=== PATIENT | male | born 1985 | race Two or more races ===

== ENCOUNTER 2016-10-02 17:16 | Emergency (ER) | payer SELFPAY ==
[~2016-10-02] VITALS: Ht 175.3 cm; Wt 104.3 kg
[~2016-10-02 17:16] MED LIST: ALPRAZOLAM1 MG PO; ATIVAN0.5 MG ORAL; ATIVAN1 MG ORAL; BACITRACIN1 APPLIC TOPIC; BACITRACIN15 GM TOPIC; BACTRIM DS TAB1 EAC1 ORAL; BENADRYL A12.5 MG/5 ORAL; BENADRYL25 MG ORAL; BENTYL10 MG ORAL; BUSPAR10 MG ORAL; CIPROFLOXACIN500 M2 ORAL; CYCLOBENZAPRINE10 MG ORAL; FAMOTIDINE40 MG ORAL; GINKGO BILOBA120 M1 PO; IBUPROFEN600 MG ORAL; MAALOX MAXIMUM355 M1 PO; NKM; NORCO 5-325 TA1 EACH ORAL; OCUFLOX5 ML LEFT EYE; OMEPRAZOLE20 M2 ORAL; PEPCID20 MG ORAL; PEPCID40 MG PO; PHENERGAN25 M1 ORAL; RANITIDINE HCL150 MG ORAL; XANAX1 MG ORAL; ZANTAC150 MG ORAL; ZOFRAN ODT4 MG ORAL; ZOFRAN4 MG ORAL
[2016-10-02 17:33] VITALS: BP 129/88
--- NOTE | 2016-10-02 17:38 | Emergency Room Report ---
History of Present Illness General Chief Complaint: General Complaint Source: Patient Present Illness HPI Patient present with complaints of anxiety he states that he feels anxious Patient states that he was in the shower when he started to feel palpitation sensation He got dressed and walked outside And after he was not feeling better called 911 Denies any chest pain denies any back or flank pain denies any change in medications patient is requesting medicine to help with his anxiety Denies any diarrhea Denies any fevers or chills Allergies: Coded Allergies: ESOMEPRAZOLE (Verified Allergy, Severe, 06/07/14) IODINATED CONTRAST MEDIA - IV DYE (Verified Allergy, Intermediate, Rash, ) Patient History Past Medical History: see triage record Pertinent Family History: none Reviewed Nursing Documentation: PMH: Agreed, PSxH: Agreed Nursing Documentation-PMH Past Medical History: No History, Except For Hx Gastrointestinal Problems: Yes - Hiatal hernia in 2013 History Of Psychiatric Problem: Yes - Anxiety Review of Systems All Other Systems: negative except mentioned in HPI Physical Exam Vital Signs Date Time Temp Pulse Resp B/P Pulse Ox O2 Delivery O2 Flow Rate FiO2 10/02/16 17:23 97.0 104 20 125/89 100 Room Air Sp02 EP Interpretation: reviewed, normal General Appearance: well appearing, no apparent distress Head: normocephalic, atraumatic Eyes: bilateral eye EOMI, bilateral eye PERRL ENT: hearing grossly normal, normal pharynx, TMs + canals normal, uvula midline Neck: full range of motion, supple, no meningismus, no bony tend Respiratory: lungs clear, normal breath sounds, no rhonchi, no respiratory distress, no retraction, no accessory muscle use Cardiovascular #1: normal peripheral pulses, regular rate, rhythm, no edema, no gallop, no JVD, no murmur Gastrointestinal: normal bowel sounds, non tender, soft, no mass, no organomegaly, non-distended, no guarding, no hernia, no pulsatile mass, no rebound Genitourinary: no CVA tenderness Musculoskeletal: normal inspection Neurologic: oriented x3, responsive, air conditioning engineer III-XII nml as tested, motor strength/ tone normal, sensory intact Psychiatric: mood/affect normal Skin: normal color, no rash, warm/dry, palpation normal Lymphatic: normal inspection, no adenopathy Medical Decision Making Diagnostic Impression: Primary Impression: Palpitations ER Course Multiple differentials were considered Patient was placed on a usability strategist an EKG performed Patient is in sinus rhythm has a benign medical evaluation patient asking for Ativan in the emergency room He has been seen previously and does have blood work in the system from few months ago I did not feel that is required to be repeated And the patient stable for close outpatient followup Rhythm Strip Diag. Results EP Interpretation: yes Rate: 76 Rhythm: NSR, no PVC's, no ectopy Last Vital Signs Date Time Temp Pulse Resp B/P Pulse Ox O2 Delivery O2 Flow Rate FiO2 10/02/16 17:23 97.0 104 20 125/89 100 Room Air Status: improved Disposition: HOME, SELF-CARE Condition: Improved Additional Instructions: Patient is provided with the discharge instructions notified to follow up with primary doctor in the next 2-3 days otherwise return to the er with any worsening symptoms. MARK FLORES D.O. Oct 02, 2016 17:38
[2016-10-02] MEDS ORDERED: LORazepam 1mg tab ORAL ONE (17:45)
[2016-10-02 18:24] VITALS: BP 126/88
--- NOTE | 2016-10-10 14:57 | Cardiology Report ---
APPROVED REPORT EKG Measurement Heart [id number] Normal sinus rhythm Normal ECG
== END 2016-10-02 18:28 | disposition home or self-care (01) ==
LOC: EDBD 17:16 → EMR 17:49
DX: R00.2 Palpitations (principal); F41.9 Anxiety disorder, unspecified; Z91.041 Radiographic dye allergy status; Z88.8 Allergy status to other drugs, medicaments and biological substances
CPT/HCPCS: 93005; 99283

== ENCOUNTER 2016-10-22 22:45 | Emergency (ER) | payer SELFPAY ==
[~2016-10-22] VITALS: Ht 175.3 cm; Wt 104.3 kg
[2016-10-22] MEDS ORDERED: BACTRIM DS TAB1 EAC1 ORAL (23:06)
[2016-10-22] MEDS ORDERED: IBUPROFEN600 MG ORAL (23:06)
[2016-10-22] MEDS ORDERED: PEPCID20 MG ORAL (23:06)
[2016-10-22] MEDS ORDERED: Bactrim DS (160mg/800mg) tab ORAL ONE (23:15)
[2016-10-22 23:45] VITALS: BP 122/75
[2016-10-22 23:46] VITALS: BP 122/75
--- NOTE | 2016-10-23 00:46 | Emergency Room Report ---
History of Present Illness General Chief Complaint: Skin Rash/Abscess Present Illness HPI Patient is a 31-year-old male who presented after having increased skin rash to his back. Patient gradual onset of symptoms. Patient had several days of increased back pain as well as redness. The patient presented here staph infections to his back. Patient had recent fever. He had not been having any had dizziness. Is not currently taking any antibiotics Allergies: Coded Allergies: ESOMEPRAZOLE (Verified Allergy, Severe, 06/07/14) IODINATED CONTRAST MEDIA - ORAL AND (Verified Allergy, Intermediate, Rash , 02/04/13) PENICILLINS (Verified Allergy, Unknown, 10/22/16) Patient History Past Medical History: see triage record Reviewed Nursing Documentation: PMH: Agreed, PSxH: Agreed Nursing Documentation-PMH Hx Gastrointestinal Problems: Yes - Hiatal hernia in 2013 Review of Systems All Other Systems: negative except mentioned in HPI Physical Exam Vital Signs Date Time Temp Pulse Resp B/P Pulse Ox O2 Delivery O2 Flow Rate FiO2 10/22/16 22:48 98.1 76 18 127/76 100 Room Air General Appearance: well appearing, no apparent distress, alert, GCS 15 Head: normocephalic, atraumatic ENT: hearing grossly normal, normal voice Neck: full range of motion, supple Respiratory: no respiratory distress, speaking full sentences Gastrointestinal: normal inspection, soft Musculoskeletal: gait/station normal, no calf tenderness Neurologic: normal inspection, alert, oriented x3, normal gait Psychiatric: mood/affect normal Skin: other - multiple small pustules to back without fluctuance Medical Decision Making Diagnostic Impression: Primary Impression: Staphylococcal infection ER Course Patient present for skin rash. Differential diagnosis included was not limited to folliculitis, abscess, cellulitis among others. Patient's benign exam and does not appear to require any further imaging or laboratory testing at this time. Patient given oral Bactrim. He is given prescription for pain medication as well as antibiotics. Is advised to have the wound rechecked in 2- 3 days. The patient is advised to follow up with primary care doctor. Patient is advised to return if any worsening condition or if any changes in status that are concerning. Last Vital Signs Date Time Temp Pulse Resp B/P Pulse Ox O2 Delivery O2 Flow Rate FiO2 10/22/16 23:46 98.1 68 20 122/75 100 Room Air Status: improved Disposition: HOME, SELF-CARE Condition: Stable Scripts Famotidine (PEPCID) 20 Mg Tablet 20 MG ORAL DAILY, #30 TAB 0 Refills Prov: Stevie Marrero 10/22/16 Trimethoprim/Sulfamethoxazole 160/800* (BACTRIM DS TABLET*) 1 Each Tablet 1 TAB ORAL TWICE A DAY, #14 TAB Prov: Stevie Marrero 10/22/16 Ibuprofen* (MOTRIN*) 600 Mg Tablet 600 MG ORAL Q8H Y for For Pain, #30 TAB Prov: Stevie Marrero 10/22/16 Referrals: NOT CHOSEN IPA/,REFERRING (PCP) Patient Instructions: MRSA Infection, Adult Stevie Marrero Oct 23, 2016 00:46
== END 2016-10-22 23:46 | disposition home or self-care (01) ==
LOC: EMR 23:00
DX: R21 Rash and other nonspecific skin eruption (principal); B95.8 Unspecified staphylococcus as the cause of diseases classified elsewhere; Z88.8 Allergy status to other drugs, medicaments and biological substances; Z88.0 Allergy status to penicillin; Z91.041 Radiographic dye allergy status
CPT/HCPCS: 99284

== ENCOUNTER 2016-11-07 09:33 | Emergency (ER) | payer SELFPAY ==
[~2016-11-07] VITALS: Ht 175.3 cm; Wt 104.3 kg
[2016-11-07] MEDS ORDERED: NKM (09:51)
[2016-11-07 09:55] VITALS: BP 129/60
--- NOTE | 2016-11-07 11:28 | Emergency Room Report ---
History of Present Illness General Chief Complaint: Skin Rash/Abscess Source: Patient Present Illness HPI Patient states that he has a history of skin infections/acne on his back. He states that he was treated with a course of antibiotics previously he did have some improvement but states that the "bumps" are back. He denies fever or chills. He denies nausea or vomiting. He has no other complaints. Allergies: Coded Allergies: ESOMEPRAZOLE (Verified Allergy, Severe, 06/07/14) IODINATED CONTRAST MEDIA - ORAL AND (Verified Allergy, Intermediate, Rash , 02/04/13) PENICILLINS (Verified Allergy, Unknown, 10/22/16) Patient History Past Medical History: none Social History: Denies: alcohol use, drug use, smoking Reviewed Nursing Documentation: PMH: Agreed, PSxH: Agreed Nursing Documentation-PM Past Medical History: No History, Except For Hx Gastrointestinal Problems: Yes - hiatal hernia Review of Systems All Other Systems: negative except mentioned in HPI Physical Exam Vital Signs Date Time Temp Pulse Resp B/P Pulse Ox O2 Delivery O2 Flow Rate FiO2 11/07/16 09:43 97.3 72 18 129/60 99 Room Air Sp02 EP Interpretation: reviewed, normal General Appearance: no apparent distress, alert, GCS 15, non-toxic Head: normocephalic, atraumatic Eyes: bilateral eye PERRL, bilateral eye normal inspection ENT: hearing grossly normal, normal pharynx, no angioedema, normal voice Neck: full range of motion, supple/symm/no masses Respiratory: no respiratory distress, no retraction, no accessory muscle use, speaking full sentences Cardiovascular #1: no edema Rectal: deferred Musculoskeletal: back normal, gait/station normal, normal range of motion, non- tender Neurologic: alert, oriented x3, responsive, motor strength/tone normal, sensory intact, speech normal Psychiatric: judgement/insight normal, memory normal, mood/affect normal, no suicidal/homicidal ideation Skin: normal color, warm/dry, well hydrated, other - Scattered acne/nodules on upper back and near buttocks. Lymphatic: no adenopathy Medical Decision Making Diagnostic Impression: Primary Impression: Folliculitis Additional Impression: Acne ER Course This patient has physical exam findings consistent with acne. I will give the patient doxycycline. I also started the patient on Hibiclens wash, preventing sweating, changes of clothing and bedding. He was also instructed to followup with his primary care physician or papeterie table assembler. At this time there is no drainable abscess or cellulitis. There is no emergency medical condition identified. Last Vital Signs Date Time Temp Pulse Resp B/P Pulse Ox O2 Delivery O2 Flow Rate FiO2 11/07/16 09:55 97.4 72 16 129/60 99 Room Air Disposition: HOME, SELF-CARE Condition: Stable Referrals: NOT CHOSEN [facility]/,REFERRING (PCP) SHABBIR GUTIERREZ D.O. Nov 07, 2016 11:28
[2016-11-07] MEDS ORDERED: DOXYCYCLINE MO100 MG ORAL (11:30)
[2016-11-07] MEDS ORDERED: HIBICLENS118 ML TP (11:30)
[2016-11-07 12:10] VITALS: BP 125/68
[2016-11-07 12:11] VITALS: BP 125/68
== END 2016-11-07 12:13 | disposition home or self-care (01) ==
LOC: EMR 10:35
DX: L70.9 Acne, unspecified (principal); L73.9 Follicular disorder, unspecified; Z88.8 Allergy status to other drugs, medicaments and biological substances; Z88.0 Allergy status to penicillin; Z91.041 Radiographic dye allergy status
CPT/HCPCS: 99284

== ENCOUNTER 2016-12-22 00:19 | Emergency (ER) | payer SELFPAY ==
[~2016-12-22] VITALS: Ht 175.3 cm; Wt 104.3 kg
[~2016-12-22 00:19] MED LIST changes: +DOXYCYCLINE MO100 MG ORAL; +HIBICLENS118 ML TP
[2016-12-22] MEDS ORDERED: LAMISIL15 GM TOPIC (00:53)
--- NOTE | 2016-12-22 00:53 | Emergency Room Report ---
History of Present Illness General Chief Complaint: Pain Source: Patient, Medical Record Present Illness HPI Is a 31-year-old male presents with bilateral feet pain. He came in tonight because pain going up his leg. He had this problem for many years. Denies any fever chills denies any nausea vomiting. Never seen anybody for it. Allergies: Coded Allergies: ESOMEPRAZOLE (Verified Allergy, Severe, 06/07/14) IODINATED CONTRAST MEDIA - ORAL AND (Verified Allergy, Intermediate, Rash , 02/04/13) PENICILLINS (Verified Allergy, Unknown, 10/22/16) Patient History Past Medical History: see triage record, old chart reviewed, psych hx Past Surgical History: none Pertinent Family History: none Social History: Denies: smoking Immunizations: other Reviewed Nursing Documentation: PMH: Agreed, PSxH: Agreed Nursing Documentation-PMH Past Medical History: No History, Except For Hx Gastrointestinal Problems: Yes - hiatal hernia Review of Systems Eye: Denies: blurred vision, eye pain ENT: Denies: ear pain, nose congestion, throat swelling Respiratory: Denies: cough, shortness of breath Cardiovascular: Denies: chest pain, palpitations Gastrointestinal: Denies: abdominal pain, diarrhea, nausea, vomiting Musculoskeletal: Denies: back pain, joint pain Skin: Denies: rash Neurological: Denies: headache, numbness Endocrine: Denies: increased thirst, increased urine Hematologic/Lymphatic: Denies: easy bruising All Other Systems: negative except mentioned in HPI Physical Exam Vital Signs Date Time Temp Pulse Resp B/P Pulse Ox O2 Delivery O2 Flow Rate FiO2 12/22/16 00:22 97.5 81 14 128/74 98 Room Air vitals normal Sp02 EP Interpretation: reviewed, normal General Appearance: well appearing, no apparent distress, alert Head: normocephalic, atraumatic Eyes: bilateral eye EOMI, bilateral eye PERRL ENT: hearing grossly normal, normal pharynx Neck: full range of motion, supple, no meningismus Respiratory: chest non-tender, lungs clear, normal breath sounds Cardiovascular #1: regular rate, rhythm, no murmur Gastrointestinal: normal bowel sounds, non tender, no mass, no organomegaly, no bruit, non-distended Musculoskeletal: back normal, gait/station normal, normal range of motion, other - Both feet: His social evidence of skin peeling and maceration. Also yellowing and malodorous. Nails are thickened. He has significant fungal infection. Psychiatric: mood/affect normal Skin: warm/dry Medical Decision Making Diagnostic Impression: Primary Impression: Athlete's foot on left Additional Impression: Athlete's foot on right ER Course Patient presents with significant athletes feet. His shoes are old and dirty. We'll refer to nursing coordinator. Last Vital Signs Date Time Temp Pulse Resp B/P Pulse Ox O2 Delivery O2 Flow Rate FiO2 12/22/16 00:22 97.5 81 14 128/74 98 Room Air Status: improved Disposition: HOME, SELF-CARE Condition: Stable Scripts Fluconazole* (DIFLUCAN*) 100 Mg Tablet 100 MG ORAL DAILY, #7 TAB Prov: PREETI GALLARDO M.D. 12/22/16 Terbinafine (Lamisil At) 12 Gm Cream..g. 1 APPL TOPIC TID, #60 GM Prov: PREETI GALLARDO M.D. 12/22/16 Additional Instructions: Keep your feet clean and dry. Good new shoes. Followup with your DrCori in 2-3 days. Return if worse. PREETI GALLARDO M.D. Dec 22, 2016 00:53
[2016-12-22] MEDS ORDERED: DIFLUCAN100 MG ORAL (00:58)
[2016-12-22 01:04] VITALS: BP 128/74
== END 2016-12-22 01:05 | disposition home or self-care (01) ==
LOC: EMR 00:35
DX: B35.3 Tinea pedis (principal); Z88.0 Allergy status to penicillin; Z88.8 Allergy status to other drugs, medicaments and biological substances; Z91.041 Radiographic dye allergy status
CPT/HCPCS: 99284

== ENCOUNTER 2017-01-01 20:53 | Emergency (ER) | payer SELFPAY ==
[~2017-01-01] VITALS: Ht 175.3 cm; Wt 104.3 kg
[~2017-01-01 20:53] MED LIST changes: +DIFLUCAN100 MG ORAL; +LAMISIL15 GM TOPIC
[2017-01-01] MEDS ORDERED: Lidocaine 1% 10mg/ml/Epi 0.005mg/ml 30ml vial INJ ONE (21:15)
[2017-01-01] MEDS ORDERED: Bactrim DS (160mg/800mg) tab ORAL ONE (21:15)
[2017-01-01] MEDS ORDERED: TdaP Vaccine 0.5ml Syr IM ONE (21:15)
--- NOTE | 2017-01-01 21:36 | Emergency Room Report ---
History of Present Illness General Chief Complaint: Skin Rash/Abscess Source: Patient Present Illness HPI The patient presents with redness and pain and swelling in the lower part of his abdomen. He's had this for several days. He's been using Vicks VapoRub on it. The pain is 7/10 at this time. Burning and constant it radiates down into his groin. He denies any fevers or chills. The patient has had several abscesses before that we've had to I and D. He's not sure when his last tetanus shot was. He's taken Tylenol and this has not helped pain. He denies any cough, upper respiratory infection symptoms, nausea, vomiting, diarrhea, dysuria. Problems with anxiety in the past. Allergies: Coded Allergies: ESOMEPRAZOLE (Verified Allergy, Severe, 06/07/14) IODINATED CONTRAST MEDIA - ORAL AND (Verified Allergy, Intermediate, Rash , 01/01/17) PENICILLINS (Verified Allergy, Unknown, 01/01/17) Patient History Past Medical History: see triage record Social History: Reports: smoking Social History Narrative works in restaurant Reviewed Nursing Documentation: PMH: Agreed, PSxH: Agreed Nursing Documentation-PMH Past Medical History: No History, Except For Hx Gastrointestinal Problems: Yes - hiatal hernia Review of Systems All Other Systems: negative except mentioned in HPI Physical Exam Vital Signs Date Time Temp Pulse Resp B/P Pulse Ox O2 Delivery O2 Flow Rate FiO2 01/01/17 20:59 98.2 90 16 146/85 97 Room Air Sp02 EP Interpretation: reviewed, normal General Appearance: well appearing, no apparent distress Head: normocephalic, atraumatic Eyes: bilateral eye PERRL, bilateral eye normal inspection ENT: hearing grossly normal, normal voice Neck: full range of motion, supple Respiratory: no respiratory distress, speaking full sentences Gastrointestinal: normal bowel sounds, soft, non-distended, no guarding, other - tenderness with skin inflammation Genitourinary: normal inspection, penis normal, scrotum normal Musculoskeletal: back normal, digits/nails normal, gait/station normal Neurologic: alert, normal gait, grossly normal Psychiatric: mood/affect normal Skin: other - erythema infraumbilical area with central area of fluctuance Procedures Incision and Drainage Incision and Drainage : Consent: Verbal Blade Size: 11 I & D Procedure: betadine prep, sterile drapes applied, sterile dressing applied, gauze wick placed Wound Location: other - abdomen Wound's Depth, Shape: superficial Wound Explored: contaminated Irrigated w/ Saline (ccs): 10 Anesthesia: Lidocaine w/ Epi Patient Tolerated: Well Complications: None Medical Decision Making Diagnostic Impression: Primary Impression: Abscess ER Course Patient presents with erythema and swelling on his lower abdomen. Differential includes cellulitis, abscess amongst others. He has no somatic complaints. This needs to be incised and drained. Also tetanus needs to be given. See procedure note. The patient tolerated the I and D well. He is discharged with antibiotics and analgesics. He'll return in 2 days to have the drain removed. Patient is stable for outpatient observation and treatment. Last Vital Signs Date Time Temp Pulse Resp B/P Pulse Ox O2 Delivery O2 Flow Rate FiO2 01/01/17 21:45 98.2 16 146/85 97 Room Air 01/01/17 20:59 90 Status: improved Disposition: HOME, SELF-CARE Condition: Improved Scripts Tramadol Hcl* (ULTRAM*) 50 Mg Tablet 50 MG ORAL Q6H Y for For Pain, #10 TAB 0 Refills Prov: Luis F Galvin M.D. 01/01/17 Ibuprofen* (MOTRIN*) 600 Mg Tablet 600 MG ORAL Q6H Y for For Pain, #16 TAB Prov: Luis F Galvin M.D. 01/01/17 Bacitracin (Bacitracin) 28.4 Gm Oint...g. 1 APPLIC TOPIC BID, #14 GM Prov: Luis F Galvin M.D. 01/01/17 Trimethoprim/Sulfamethoxazole 160/800* (BACTRIM DS TABLET*) 1 Each Tablet 1 TAB ORAL Q12H, #14 TAB 0 Refills Prov: Luis F Galvin M.D. 01/01/17 Luis F Galvin M.D. January 01, 2017 21:36
[2017-01-01] MEDS ORDERED: TRAMADOL HCL50 MG ORAL (21:39)
[2017-01-01] MEDS ORDERED: BACITRACIN15 GM TOPIC (21:39)
[2017-01-01] MEDS ORDERED: IBUPROFEN600 MG ORAL (21:39)
[2017-01-01] MEDS ORDERED: BACTRIM DS TAB1 EAC1 ORAL (21:39)
[2017-01-01 21:45] VITALS: BP 146/85
== END 2017-01-01 21:45 | disposition home or self-care (01) ==
LOC: EMR 21:37
DX: L02.211 Cutaneous abscess of abdominal wall (principal); Z88.0 Allergy status to penicillin; Z88.8 Allergy status to other drugs, medicaments and biological substances; Z91.041 Radiographic dye allergy status; F17.200 Nicotine dependence, unspecified, uncomplicated; Z23 Encounter for immunization
CPT/HCPCS: 10060; 90471; 90715; 96372; 96374

== ENCOUNTER 2017-01-03 21:57 | Emergency (ER) | payer SELFPAY ==
[~2017-01-03] VITALS: Ht 175.3 cm; Wt 104.3 kg
[~2017-01-03 21:57] MED LIST changes: +TRAMADOL HCL50 MG ORAL
[2017-01-03] MEDS ORDERED: KEFLEX500 MG ORAL (22:55)
[2017-01-03] MEDS ORDERED: ACETAMINOPHEN-1 EAC1 ORAL (22:55)
--- NOTE | 2017-01-03 23:03 | Emergency Room Report ---
History of Present Illness General Chief Complaint: Skin Rash/Abscess Source: Patient Present Illness HPI 31YOM Walk-in for wound check after I&D of abscess to front abdomen 2 days prior. Compliant with Bactrim. Taking Tramadol as needed for pain, but states not very effective. Denies fever/chills. States drain fell out when he changed dressing yesterday. Denies nausea/vomiting, stomach pain, diarrhea. States area of redness has remained the same. Allergies: Coded Allergies: ESOMEPRAZOLE (Verified Allergy, Severe, 01/03/17) IODINATED CONTRAST MEDIA - ORAL AND (Verified Allergy, Intermediate, Rash , 01/03/17) PENICILLINS (Verified Allergy, Unknown, 01/03/17) Patient History Past Surgical History: none Pertinent Family History: none Social History: Denies: alcohol use, drug use, smoking Immunizations: UTD Reviewed Nursing Documentation: PMH: Agreed, PSxH: Agreed Nursing Documentation-PMH Past Medical History: No History, Except For Hx Gastrointestinal Problems: Yes - hiatal hernia Review of Systems All Other Systems: negative except mentioned in HPI Physical Exam Vital Signs Date Time Temp Pulse Resp B/P Pulse Ox O2 Delivery O2 Flow Rate FiO2 01/03/17 22:13 98.1 91 16 134/93 98 Room Air Sp02 EP Interpretation: reviewed, normal General Appearance: normal inspection, well appearing, no apparent distress, alert, GCS 15, non-toxic Head: normocephalic, atraumatic Eyes: bilateral eye EOMI, bilateral eye PERRL ENT: normal ENT inspection, hearing grossly normal, normal voice Neck: normal inspection, full range of motion, supple, no bony tend Respiratory: normal inspection, lungs clear, normal breath sounds, no respiratory distress, no retraction, no wheezing Cardiovascular #1: regular rate, rhythm, no edema Gastrointestinal: normal inspection, normal bowel sounds, non tender, soft, no guarding, no hernia Genitourinary: no CVA tenderness Musculoskeletal: normal inspection, back normal, normal range of motion, Maribeth' s Sign negative Neurologic: normal inspection, alert, oriented x3, responsive, sheet heater helper III-XII nml as tested, motor strength/tone normal, speech normal Psychiatric: normal inspection, judgement/insight normal, mood/affect normal Skin: normal inspection, other - area of frontal abdomen with large section of streaky erythema. I&D site visualized, no drain seen. No pus expressed from wound. Medical Decision Making Diagnostic Impression: Primary Impression: Abscess Additional Impression: Cellulitis ER Course Resolved abscess but continued cellulitis VSS. Afebrile. No systemic signs or symptoms Will add Rx Keflex to bactrim Rx T#3 in addition for pain DC home Last Vital Signs Date Time Temp Pulse Resp B/P Pulse Ox O2 Delivery O2 Flow Rate FiO2 01/03/17 22:13 98.1 91 16 134/93 98 Room Air Status: improved Disposition: HOME, SELF-CARE Condition: Improved Scripts Cephalexin* (KEFLEX*) 500 Mg Capsule 500 MG ORAL Q6H for 7 Days, #28 CAP 0 Refills Prov: CAHIM MAGALLANES M.D. 01/03/17 Acetaminophen With Codeine (T#3) (TYLENOL #3 TAB*) Y Tab 1 TAB ORAL Q8H Y for For Pain, #20 TAB Prov: CHAIM MAGALLANES M.D. 01/03/17 Patient Instructions: Abscess Additional Instructions: - Take ALL the Bactrim as prescribed until finished - Also take Keflex for 1 week until finished - Take Tramadol as needed for pain - For severe pain you can take Tylenol with codeine CHAIM MAGALLANES M.D. January 03, 2017 23:03
[2017-01-03 23:20] VITALS: BP 137/91
[2017-01-03 23:25] VITALS: BP 137/91
== END 2017-01-03 23:25 | disposition home or self-care (01) ==
LOC: EMR 22:45
DX: L02.211 Cutaneous abscess of abdominal wall (principal); L03.311 Cellulitis of abdominal wall; Z88.0 Allergy status to penicillin; Z88.8 Allergy status to other drugs, medicaments and biological substances; Z91.041 Radiographic dye allergy status
CPT/HCPCS: 99284

== ENCOUNTER 2017-02-10 17:47 | Emergency (ER) | payer SELFPAY ==
[~2017-02-10] VITALS: Ht 175.3 cm; Wt 104.3 kg
[~2017-02-10 17:47] MED LIST changes: +ACETAMINOPHEN-1 EAC1 ORAL; +KEFLEX500 MG ORAL
[2017-02-10] MEDS ORDERED: CLARITIN-D 241 EACH PO (18:22)
[2017-02-10] MEDS ORDERED: PROMETHAZI6.25 MG/1 ORAL (18:22)
[2017-02-10] MEDS ORDERED: PREDNISONE20 MG ORAL (18:22)
[2017-02-10 18:26] VITALS: BP 130/92
--- NOTE | 2017-02-10 19:49 | Emergency Room Report ---
History of Present Illness General Chief Complaint: Flu Like Symptoms Present Illness HPI The patient is a 31-year-old male who denies medical history presenting for nasal congestion, productive cough, sore throat, and chest congestion for the past 2 weeks. He denies any sick contacts or recent travel. He denies fever or chills. He denies having any allergies in the past. He denies any other symptoms including N, V, SOB, CP, hemoptyisis, dizziness, JOAQUIN, rash Allergies: Coded Allergies: ESOMEPRAZOLE (Verified Allergy, Severe, 01/03/17) IODINATED CONTRAST MEDIA - ORAL AND (Verified Allergy, Intermediate, Rash , 01/03/17) PENICILLINS (Verified Allergy, Unknown, 01/03/17) Patient History Past Medical History: see triage record Pertinent Family History: none Reviewed Nursing Documentation: PMH: Agreed, PSxH: Agreed Nursing Documentation-PMH Hx Gastrointestinal Problems: Yes - hiatal hernia Review of Systems All Other Systems: negative except mentioned in HPI Physical Exam Vital Signs Date Time Temp Pulse Resp B/P Pulse Ox O2 Delivery O2 Flow Rate FiO2 02/10/17 17:56 97.9 82 20 130/92 99 Room Air Sp02 EP Interpretation: reviewed, normal General Appearance: no apparent distress, alert, GCS 15, non-toxic Head: normocephalic, atraumatic Eyes: bilateral eye PERRL, bilateral eye normal inspection ENT: hearing grossly normal, normal pharynx, no angioedema, normal voice, uvula midline, nasal congestion Neck: full range of motion, supple/symm/no masses Respiratory: normal inspection, lungs clear, normal breath sounds, no rhonchi, no respiratory distress, no accessory muscle use, no wheezing Cardiovascular #1: regular rate, rhythm, no edema Musculoskeletal: back normal, gait/station normal, normal range of motion, non- tender Neurologic: alert, oriented x3, responsive, motor strength/tone normal, sensory intact, normal gait, speech normal Psychiatric: judgement/insight normal, memory normal, mood/affect normal, no suicidal/homicidal ideation Skin: normal color, no rash, warm/dry, well hydrated Lymphatic: no adenopathy Medical Decision Making PA Attestation Dr. Marrero is my supervising physician. Patient management was discussed with my supervising physician Diagnostic Impression: Primary Impression: Seasonal allergies Qualified Codes: J30.2 - Other seasonal allergic rhinitis ER Course The patient is a 31-year-old male presenting for nasal congestion, productive cough, sore throat, and chest congestion Differential diagnosis include but not limited to pharyngitis, sinusitis, AOM, bronchitis, PNA, rhinitis, among others PE: No apparent distress. A&Ox4 PERRL. EOMI. Normal mentation. RRR. No MRG Lungs CTA bilat + nasal congestion No lymphadenopathy Skin is warm and dry, no rashes. The patient to be treated for allergies. ER precautions given and he will follow up with PMD Last Vital Signs Date Time Temp Pulse Resp B/P Pulse Ox O2 Delivery O2 Flow Rate FiO2 02/10/17 18:26 97.9 20 130/92 99 Room Air 02/10/17 18:06 82 Status: improved Disposition: HOME, SELF-CARE Condition: Improved Scripts Promethazine Hcl (PROMETHAZINE HCL*) 6.25 Mg/5 Ml Syrup 5 ML ORAL Q6H, #120 ML 0 Refills Prov: JOSE M DOMINGO P.A. 02/10/17 Prednisone* (PREDNISONE*) 20 Mg Tablet 40 MG ORAL DAILY, #10 TAB Prov: TERZIANJOSE M P.A. 02/10/17 Loratadine/Pseudoephedrine (CLARITIN-D 24 HOUR TABLET) 1 Each Tab.er.24h 1 TAB PO DAILY, #30 TAB Prov: TERZIANJOSE M P.A. 02/10/17 Patient Instructions: Cough, Adult, Allergies Additional Instructions: I discussed my findings with the patient. All questions and concerns have been answered. Treatment and medication compliance have been addressed. I advised the patient that they need to follow up with PMD in 3-5 days. Return to ED if symptoms worsen, new symptoms arise, or if needed for any reason. Patient verbalized understanding of discharge instructions. JOSE M DOMINGO Feb 10, 2017 19:49
== END 2017-02-10 18:25 | disposition home or self-care (01) ==
LOC: EMR 18:10
DX: J30.2 Other seasonal allergic rhinitis (principal); Z88.0 Allergy status to penicillin; Z88.8 Allergy status to other drugs, medicaments and biological substances; Z91.041 Radiographic dye allergy status; K44.9 Diaphragmatic hernia without obstruction or gangrene
CPT/HCPCS: 99284

== ENCOUNTER 2017-02-24 22:21 | Emergency (ER) | payer SELFPAY ==
[~2017-02-24] VITALS: Ht 185.4 cm; Wt 104.3 kg
[~2017-02-24 22:21] MED LIST changes: +CLARITIN-D 241 EACH PO; +PREDNISONE20 MG ORAL; +PROMETHAZI6.25 MG/1 ORAL
[2017-02-24 22:30] VITALS: BP 131/81
[2017-02-24] MEDS ORDERED: BUSPAR10 MG ORAL (23:16)
--- NOTE | 2017-02-24 23:16 | Emergency Room Report ---
History of Present Illness General Chief Complaint: Chest Pain Source: Patient Present Illness HPI Is a 31-year-old male with a history of anxiety. He presents with chief complaint of numbness to his body and head. Also with palpitation and chest pain. [place] nauseous. Collapse or vomiting. Onset prior to arrival. [place] better now. Denies any fever chills denies any diarrhea. No abdominal pain. Similar symptom in the past. Allergies: Coded Allergies: ESOMEPRAZOLE (Verified Allergy, Severe, 01/03/17) IODINATED CONTRAST MEDIA - ORAL AND (Verified Allergy, Intermediate, Rash , 01/03/17) PENICILLINS (Verified Allergy, Unknown, 01/03/17) Patient History Past Medical History: see triage record, old chart reviewed, psych hx Past Surgical History: none Pertinent Family History: none Social History: Denies: drug use Immunizations: other Reviewed Nursing Documentation: PMH: Agreed, PSxH: Agreed Nursing Documentation-PM Past Medical History: No History, Except For Hx Gastrointestinal Problems: Yes - hiatal hernia Review of Systems Eye: Denies: blurred vision, eye pain ENT: Denies: ear pain, nose congestion, throat swelling Respiratory: Denies: cough, shortness of breath Cardiovascular: Reports: chest pain, palpitations Gastrointestinal: Reports: nausea, vomiting, Denies: abdominal pain, diarrhea Musculoskeletal: Denies: back pain, joint pain Skin: Denies: rash Neurological: Denies: headache, numbness Endocrine: Denies: increased thirst, increased urine Hematologic/Lymphatic: Denies: easy bruising All Other Systems: negative except mentioned in HPI Physical Exam Vital Signs Date Time Temp Pulse Resp B/P Pulse Ox O2 Delivery O2 Flow Rate FiO2 02/24/17 22:25 97.9 68 12 131/81 100 Room Air vitals normal Sp02 EP Interpretation: reviewed, normal General Appearance: well appearing, no apparent distress, alert Head: normocephalic, atraumatic Eyes: bilateral eye EOMI, bilateral eye PERRL ENT: hearing grossly normal, normal pharynx Neck: full range of motion, supple, no meningismus Respiratory: chest non-tender, lungs clear, normal breath sounds Cardiovascular #1: regular rate, rhythm, no murmur Gastrointestinal: normal bowel sounds, non tender, no mass, no organomegaly, no bruit, non-distended Musculoskeletal: back normal, gait/station normal, normal range of motion Psychiatric: mood/affect normal Skin: warm/dry Medical Decision Making Diagnostic Impression: Primary Impression: Anxiety Additional Impression: Chest pain Qualified Codes: R07.9 - Chest pain, unspecified ER Course Patient with symptoms consistent with anxiety/panic attack. Chest pain is atypical and noncardiac. We'll discharge home. He sleeping comfortably now. Last Vital Signs Date Time Temp Pulse Resp B/P Pulse Ox O2 Delivery O2 Flow Rate FiO2 02/24/17 22:30 70 13 Room Air 02/24/17 22:30 97.9 131/81 98 Status: improved Disposition: HOME, SELF-CARE Condition: Stable Scripts Buspirone Hcl* (BUSPAR*) 10 Mg Tablet 10 MG ORAL THREE TIMES A DAY, #15 TAB 0 Refills Prov: PREETI GALLARDO M.D. 02/24/17 Referrals: NOT CHOSEN [facility]/,REFERRING (PCP) Additional Instructions: Followup with your Dr. in 7 days. Return if symptom worsen. PREETI GALLARDO M.D. Feb 24, 2017 23:16
[2017-02-24 23:25] VITALS: BP 106/57
== END 2017-02-24 23:25 | disposition home or self-care (01) ==
LOC: EMR 22:36
DX: F41.9 Anxiety disorder, unspecified (principal); R07.89 Other chest pain; R11.2 Nausea with vomiting, unspecified; R00.2 Palpitations; K44.9 Diaphragmatic hernia without obstruction or gangrene; Z88.8 Allergy status to other drugs, medicaments and biological substances; Z88.0 Allergy status to penicillin; Z91.041 Radiographic dye allergy status
CPT/HCPCS: 99283

== ENCOUNTER 2017-03-14 22:09 | Emergency (ER) | payer SELFPAY ==
[~2017-03-14] VITALS: Ht 185.4 cm; Wt 104.3 kg
[2017-03-14 22:20] VITALS: BP 137/84
--- NOTE | 2017-03-14 22:29 | Emergency Room Report ---
History of Present Illness General Chief Complaint: Sore Throat Source: Patient Present Illness HPI Is a 31-year-old male with a history anxiety. He presents to complaint of sore throat. He said he was eating a taco and felt a scratch in his throat. Denies any fever chills denies any nausea vomiting. Nothing made it better. Swollen made it worse. No other complaint. Allergies: Coded Allergies: ESOMEPRAZOLE (Verified Allergy, Severe, 01/03/17) IODINATED CONTRAST MEDIA - ORAL AND (Verified Allergy, Intermediate, Rash , 01/03/17) PENICILLINS (Verified Allergy, Unknown, 01/03/17) Patient History Past Medical History: see triage record, old chart reviewed Past Surgical History: other Pertinent Family History: none Social History: Denies: smoking Immunizations: other Reviewed Nursing Documentation: PMH: Agreed, PSxH: Agreed Nursing Documentation-PMH Past Medical History: No History, Except For Hx Gastrointestinal Problems: Yes - hiatal hernia Review of Systems Eye: Denies: blurred vision, eye pain ENT: Reports: throat pain, Denies: ear pain, nose congestion, throat swelling Respiratory: Denies: cough, shortness of breath Cardiovascular: Denies: chest pain, palpitations Gastrointestinal: Denies: abdominal pain, diarrhea, nausea, vomiting Musculoskeletal: Denies: back pain, joint pain Skin: Denies: rash Neurological: Denies: headache, numbness Endocrine: Denies: increased thirst, increased urine Hematologic/Lymphatic: Denies: easy bruising All Other Systems: negative except mentioned in HPI Physical Exam Vital Signs Date Time Temp Pulse Resp B/P Pulse Ox O2 Delivery O2 Flow Rate FiO2 03/14/17 22:14 98.1 85 16 137/84 99 Room Air vitals normal Sp02 EP Interpretation: reviewed, normal General Appearance: well appearing, no apparent distress, alert Head: normocephalic, atraumatic Eyes: bilateral eye EOMI, bilateral eye PERRL ENT: hearing grossly normal, normal pharynx Neck: full range of motion, supple, no meningismus Respiratory: chest non-tender, lungs clear, normal breath sounds Cardiovascular #1: regular rate, rhythm, no murmur Gastrointestinal: normal bowel sounds, non tender, no mass, no organomegaly, no bruit, non-distended Musculoskeletal: back normal, gait/station normal, normal range of motion Psychiatric: mood/affect normal Skin: warm/dry Medical Decision Making Diagnostic Impression: Primary Impression: Sore throat ER Course Patient presents with sore throat. He able to drink without a problem here. Notice any foreign body. We'll discharge home with reassurance. No need for x- rays. No evidence of any obstruction. Last Vital Signs Date Time Temp Pulse Resp B/P Pulse Ox O2 Delivery O2 Flow Rate FiO2 03/14/17 22:14 98.1 85 16 137/84 99 Room Air Status: improved Disposition: HOME, SELF-CARE Condition: Stable Patient Instructions: Sore Throat Additional Instructions: Followup with your Dr. in 7 days. Return if symptom worsen. PREETI GALLARDO M.D. Mar 14, 2017 22:29
[2017-03-14 22:30] VITALS: BP 137/84
== END 2017-03-14 22:30 | disposition home or self-care (01) ==
LOC: EMR 22:30
DX: J02.9 Acute pharyngitis, unspecified (principal); K44.9 Diaphragmatic hernia without obstruction or gangrene; Z88.0 Allergy status to penicillin; Z88.8 Allergy status to other drugs, medicaments and biological substances; Z91.041 Radiographic dye allergy status
CPT/HCPCS: 99282

== ENCOUNTER 2017-06-03 23:47 | Emergency (ER) | payer SELFPAY ==
[~2017-06-03] VITALS: Ht 185.4 cm; Wt 104.3 kg
[2017-06-04 00:03] VITALS: BP 128/72
--- NOTE | 2017-06-04 00:11 | Emergency Room Report ---
History of Present Illness General Chief Complaint: Sore Throat Source: Patient Present Illness HPI 32-year-old male in no significant past medical history presenting with sore throat, cough for one week. Patient states he has a sore throat, worse with eating, but however he has been able to eat and drink normally. Also complaining of dry cough. States that his tongue is very dry. No fever or chills no abdominal pain Allergies: Coded Allergies: ESOMEPRAZOLE (Verified Allergy, Severe, 01/03/17) IODINATED CONTRAST MEDIA - ORAL AND (Verified Allergy, Intermediate, Rash , 01/03/17) PENICILLINS (Verified Allergy, Unknown, 01/03/17) Patient History Past Medical History: see triage record Past Surgical History: none Pertinent Family History: none Reviewed Nursing Documentation: PMH: Agreed, PSxH: Agreed Nursing Documentation-PMH Hx Gastrointestinal Problems: Yes - hiatal hernia Review of Systems All Other Systems: negative except mentioned in HPI Physical Exam Vital Signs Date Time Temp Pulse Resp B/P (MAP) Pulse Ox O2 Delivery O2 Flow Rate FiO2 06/03/17 23:49 97.9 66 18 136/70 98 06/04/17 00:03 Room Air Sp02 EP Interpretation: reviewed, normal General Appearance: normal inspection, well appearing, no apparent distress, alert, GCS 15, non-toxic, other - no respiratory distress, speaking complete sentences Head: normocephalic, atraumatic Eyes: bilateral eye normal inspection, bilateral eye PERRL, bilateral eye EOMI ENT: normal voice, moist mucus membranes, other - Tonsillar erythema bilaterally, no enlargement, no exudates, no uvula enlargement, uvula is midline , no signs of BAG MAKING MACHINE TENDER Neck: normal inspection, full range of motion, supple, other - No tenderness, no neck swelling, can extend neck without any issue Respiratory: normal inspection, lungs clear, normal breath sounds, no respiratory distress, no retraction, no wheezing, speaking full sentences, chest symmetrical Cardiovascular #1: normal inspection, regular rate, rhythm, no edema, normal capillary refill Cardiovascular #2: 2+ radial (R), 2+ radial (L) Gastrointestinal: normal inspection, non tender, soft, non-distended, no guarding Genitourinary: no CVA tenderness Musculoskeletal: normal inspection, back normal, normal range of motion, non- tender Neurologic: normal inspection, alert, oriented x3, responsive, motor strength/ tone normal, sensory intact, normal gait, speech normal Psychiatric: normal inspection, judgement/insight normal, memory normal Skin: normal inspection, normal color, no rash, warm/dry, well hydrated, normal turgor Medical Decision Making Diagnostic Impression: Primary Impression: Sore throat ER Course 32-year-old male with sore throat and cough DDX: viral vs. infectious mononucleosis vs. bacterial pharyngitis vs. allergies versus viral URI versus pneumonia Other serious causes such as BAG MAKING MACHINE TENDER / RPA / deep space neck infection history/physical most consistent with viral pharyngitis Plan: Motrin, supportive care. Abx not indicated at this time ER course: Patient remains stable in ED. Pt states improvement of pain with motrin. Disposition: Patient will be discharged to home. Patient will follow up with primary care doctor within 5 days. Strict return precautions discussed with patient such as worsening throat pain/swelling, dysphagia, high fever or chills, shortness of breath, abdominal pain, which may indicate severe illness. Patient verbalized understanding and agreed with plan. Please note that this Emergency Department Report was dictated using [employer] design engineer technology software, occasionally this can lead to erroneous entry secondary to interpretation by the dictation equipment. Chest X-ray CXR: Ordered: Yes 1 view Indication: Chest pain EP interpretation: Yes Interpretation: No consolidation, no effusion, no PTX, no acute cardiopulmonary disease Impression: No acute disease Electronically signed by Skylar Fraire MD Last Vital Signs Date Time Temp Pulse Resp B/P (MAP) Pulse Ox O2 Delivery O2 Flow Rate FiO2 06/04/17 00:03 98.1 88 18 128/72 100 Room Air Disposition: HOME, SELF-CARE Condition: Improved Scripts Ibuprofen* (MOTRIN*) 600 Mg Tablet 600 MG ORAL Q8H Y for For Pain, #30 TAB 0 Refills Prov: Skylar Fraire M.D. 06/04/17 Referrals: NOT CHOSEN [facility]/,REFERRING (PCP) Patient Instructions: Sore Throat Skylar Fraire M.D. Jun 04, 2017 00:11
[2017-06-04] MEDS ORDERED: IBUPROFEN600 MG ORAL (00:14)
[2017-06-04 01:15] VITALS: BP 128/72
--- NOTE | 2017-06-04 10:06 | Diagnostic Imaging Report ---
Indication: Chest pain Comparison: 04/09/16 A single view chest radiograph was obtained. Findings: Cardiomediastinal appearance is within normal limits for age. Pulmonary vascularity is appropriate. The diaphragmatic contour is smooth and costophrenic angles are sharp. No pleural effusions are identified. The bones are unremarkable. Impression: No acute findings
== END 2017-06-04 01:15 | disposition home or self-care (01) ==
LOC: EMR 06-04 00:03
DX: J02.9 Acute pharyngitis, unspecified (principal); R07.9 Chest pain, unspecified; K44.9 Diaphragmatic hernia without obstruction or gangrene; Z88.0 Allergy status to penicillin; Z91.041 Radiographic dye allergy status; Z88.8 Allergy status to other drugs, medicaments and biological substances
CPT/HCPCS: 71010; 99283

== ENCOUNTER 2017-06-11 19:47 | Emergency (ER) | payer SELFPAY ==
[~2017-06-11] VITALS: Ht 175.3 cm; Wt 104.3 kg
[2017-06-11] MEDS ORDERED: NKM (20:10)
--- NOTE | 2017-06-11 21:10 | Emergency Room Report ---
History of Present Illness General Chief Complaint: Nausea, Vomiting, and Diarrhea Source: Patient Present Illness HPI Patient reports that about 10 minutes prior to arrival he had eaten chicken at a restaurant Soon after eating that he began vomiting Experienced epigastric discomfort Mild headache as well Patient reports that he felt some scratchy sensation in his throat At this time has done a little bit better denies any back or flank pain Denies any lower abdominal pain denies any diarrhea Allergies: Coded Allergies: ESOMEPRAZOLE (Verified Allergy, Severe, 06/11/17) IODINATED CONTRAST- ORAL AND IV DYE (Verified Allergy, Intermediate, Rash , 06/11/17) PENICILLINS (Verified Allergy, Unknown, 06/11/17) Patient History Past Medical History: see triage record Pertinent Family History: none Reviewed Nursing Documentation: PMH: Agreed, PSxH: Agreed Nursing Documentation-PMH Hx Gastrointestinal Problems: Yes - hiatal hernia Review of Systems All Other Systems: negative except mentioned in HPI Physical Exam Vital Signs Date Time Temp Pulse Resp B/P (MAP) Pulse Ox O2 Delivery O2 Flow Rate FiO2 06/11/17 20:05 97.9 87 16 144/98 99 Room Air Sp02 EP Interpretation: reviewed, normal General Appearance: well appearing, no apparent distress Head: normocephalic, atraumatic Eyes: bilateral eye PERRL, bilateral eye EOMI ENT: hearing grossly normal, normal pharynx, TMs + canals normal, uvula midline Neck: full range of motion, supple, no meningismus, no bony tend Respiratory: lungs clear, normal breath sounds, no rhonchi, no respiratory distress, no retraction, no accessory muscle use Cardiovascular #1: regular rate, rhythm Gastrointestinal: non tender, soft Musculoskeletal: normal inspection Neurologic: alert, oriented x3, responsive Skin: no rash, warm/dry Lymphatic: no adenopathy Medical Decision Making Diagnostic Impression: Primary Impression: Vomiting Additional Impression: Abdominal pain ER Course With the history exam and presentation, multiple differentials considered, including but not limited to appendicitis, gastritis, cholecystitis, diverticulitis Patient otherwise has a fairly benign abdominal exam at this time my consideration for appendicitis is low Patient appears to have signs and symptoms in line with likely viral gastroenteritis Given the vomiting Patient provided with early appendicitis instructions and will return with any change in symptom Patient was provided with antiemetics and stable for close outpatient followup Last Vital Signs Date Time Temp Pulse Resp B/P (MAP) Pulse Ox O2 Delivery O2 Flow Rate FiO2 06/11/17 20:05 97.9 87 16 144/98 99 Room Air Status: improved Disposition: HOME, SELF-CARE Condition: Improved Scripts Ondansetron Odt* (ZOFRAN ODT*) 4 Mg Tab.rapdis 4 MG ORAL Q6H Y for Nausea & Vomiting, #20 TAB 0 Refills Prov: MARK FLORES D.O. 06/11/17 Additional Instructions: Patient is provided with the discharge instructions notified to follow up with primary doctor in the next 2-3 days otherwise return to the er with any worsening symptoms. Please note that this report is being documented using [employer] technology. This can lead to erroneous entry secondary to incorrect interpretation by the dictating instrument. MARK FLORES D.O. Jun 11, 2017 21:10
[2017-06-11 21:18] VITALS: BP 144/98
[2017-06-11] MEDS ORDERED: ZOFRAN ODT4 MG ORAL (21:26)
[2017-06-11 21:49] VITALS: BP 138/80
== END 2017-06-11 21:50 | disposition home or self-care (01) ==
LOC: EMR 20:40
DX: R11.2 Nausea with vomiting, unspecified (principal); R10.9 Unspecified abdominal pain; Z88.0 Allergy status to penicillin; Z88.8 Allergy status to other drugs, medicaments and biological substances; Z91.041 Radiographic dye allergy status
CPT/HCPCS: 99283

== ENCOUNTER 2017-08-06 19:51 | Emergency (ER) | payer SELFPAY ==
[~2017-08-06] VITALS: Ht 175.3 cm; Wt 104.3 kg
[2017-08-06 20:37] LABS: APPEARANCE,URINE CLEAR; KETONES,URINE NEGATIVE (NEGATIVE); LEUKOCYTE ESTERASE ,URINE NEGATIVE (NEGATIVE); NITRITE,URINE NEGATIVE (NEGATIVE); PH,URINE 6 (4.5-8.0); PROTEIN,URINE NEGATIVE (NEGATIVE); UROBILINOGEN,URINE NORMAL MG/DL (0.0-1.0)
[2017-08-06 20:48] VITALS: BP 122/80
[2017-08-06] MEDS ORDERED: ACETAMINOPHEN-1 EAC1 ORAL (20:55)
[2017-08-06 20:59] VITALS: BP 122/80
--- NOTE | 2017-08-06 22:28 | Emergency Room Report ---
History of Present Illness General Chief Complaint: Back Pain-No Injury Present Illness HPI The patient is a 32-year-old male with a history of anxiety presenting for pain at the neck and lower back which began 2 days prior for no known reason. Pain is a 7/10 dull ache and worse with movement. He denies any injury to these areas. He denies other symptoms including N, V, F, chills, dizziness, stiff neck, rash, abd pain, dysuria, hematuria Allergies: Coded Allergies: ESOMEPRAZOLE (Verified Allergy, Severe, 06/11/17) IODINATED CONTRAST- ORAL AND IV DYE (Verified Allergy, Intermediate, Rash , 06/11/17) PENICILLINS (Verified Allergy, Unknown, 06/11/17) Patient History Past Medical History: see triage record Pertinent Family History: none Reviewed Nursing Documentation: PMH: Agreed, PSxH: Agreed Nursing Documentation-PMH Hx Gastrointestinal Problems: Yes - hiatal hernia Review of Systems All Other Systems: negative except mentioned in HPI Physical Exam Vital Signs Date Time Temp Pulse Resp B/P (MAP) Pulse Ox O2 Delivery O2 Flow Rate FiO2 08/06/17 19:53 97.5 93 16 127/83 96 Room Air Sp02 EP Interpretation: reviewed, normal General Appearance: no apparent distress, alert, GCS 15, non-toxic Head: normocephalic, atraumatic ENT: hearing grossly normal, normal pharynx, no angioedema, normal voice Neck: full range of motion, supple/symm/no masses, tender lateral - bilat Respiratory: chest non-tender, lungs clear, normal breath sounds, speaking full sentences Cardiovascular #1: regular rate, rhythm, no edema Musculoskeletal: normal inspection, gait/station normal, normal range of motion Neurologic: alert, oriented x3, responsive, motor strength/tone normal, sensory intact, speech normal Psychiatric: judgement/insight normal, memory normal, mood/affect normal, no suicidal/homicidal ideation Skin: normal color, no rash, warm/dry, well hydrated Medical Decision Making PA Attestation Dr. Taylor is my supervising physician. Patient management was discussed with my supervising physician Diagnostic Impression: Primary Impression: Back pain Qualified Codes: M54.9 - Dorsalgia, unspecified ER Course The patient is a 32-year-old male with a history of anxiety presenting for pain at the neck and lower back Ddx considered include but not limited to lumbar strain, degenerative disease, pyelonephritis, kidney stone, muscle strain, chronic pain, narcotic dependency. Physical exam: Vitals are within normal limits. No apparent distress Neck is soft and supple. No midline tenderness or step-offs. There is bilateral paraspinal tenderness to palpation. Full active range of motion intact There is also tenderness to palpation over bilateral lumbar paraspinal muscles. No CVA tenderness Abdomen soft and nontender. Nondistended. No guarding. Normal bowel sounds Urinalysis unremarkable The patient will be treated with pain medication and needs to followup with his primary doctor. ER precautions given Laboratory Tests Test 08/06/17 20:20 Urine Color Pale yellow Urine Appearance Clear Urine pH 6 (4.5-8.0) Urine Specific [place] 1.020 (1.005-1.035) Urine Protein Negative (NEGATIVE) Urine Glucose (UA) Negative (NEGATIVE) Urine Ketones Negative (NEGATIVE) Urine Occult Blood Negative (NEGATIVE) Urine Nitrite Negative (NEGATIVE) Urine Bilirubin Negative (NEGATIVE) Urine Urobilinogen Normal MG/DL (0.0-1.0) Urine Leukocyte Esterase Negative (NEGATIVE) Lab Results Impression unremarkable Last Vital Signs Date Time Temp Pulse Resp B/P (MAP) Pulse Ox O2 Delivery O2 Flow Rate FiO2 08/06/17 20:59 97.9 78 18 122/80 98 Room Air Status: improved Disposition: HOME, SELF-CARE Condition: Improved Scripts Acetaminophen With Codeine (T#3) (TYLENOL #3 TAB*) Y Tab 1 TAB ORAL Q6HR Y for For Pain, #12 TAB Prov: JOSE M DOMINGO 08/06/17 Patient Instructions: Back Pain, Adult Additional Instructions: I discussed my findings with the patient. All questions and concerns have been answered. Treatment and medication compliance have been addressed. I advised the patient that they need to follow up with PMD in 3-5 days. Return to ED if symptoms worsen, new symptoms arise, or if needed for any reason. Patient verbalized understanding of discharge instructions. JOSE M DOMINGO Aug 06, 2017 22:28
== END 2017-08-06 21:00 | disposition home or self-care (01) ==
LOC: EMR 20:23
DX: M54.9 Dorsalgia, unspecified (principal); Z88.8 Allergy status to other drugs, medicaments and biological substances; Z91.041 Radiographic dye allergy status; Z88.0 Allergy status to penicillin
CPT/HCPCS: 81003; 99283

== ENCOUNTER 2017-09-27 19:55 | Emergency (ER) | payer MEDICAID ==
[~2017-09-27] VITALS: Ht 175.3 cm; Wt 104.3 kg
[2017-09-27 20:28] VITALS: BP 140/90
[2017-09-27 23:00] VITALS: BP 130/87
--- NOTE | 2017-09-27 23:01 | Emergency Room Report ---
History of Present Illness General Chief Complaint: Generalized Weakness Source: Patient Present Illness HPI This patient complains of generalized weakness and fatigue. He states that he is also felt lightheaded today. He states yesterday he had an episode where he felt very short of breath. He denies cough or congestion. Denies fever or chills. He denies chest pain. He denies abdominal pain. He denies dysuria or hematuria. He denies headache. He has no other complaints. Allergies: Coded Allergies: ESOMEPRAZOLE (Verified Allergy, Severe, 06/11/17) IODINATED CONTRAST- ORAL AND IV DYE (Verified Allergy, Intermediate, Rash , 06/11/17) PENICILLINS (Verified Allergy, Unknown, 06/11/17) Patient History Past Medical History: see triage record, psych hx Social History: Denies: smoking, alcohol use, drug use Reviewed Nursing Documentation: PMH: Agreed, PSxH: Agreed Nursing Documentation-PMH Hx Gastrointestinal Problems: Yes - hiatal hernia Review of Systems All Other Systems: negative except mentioned in HPI Physical Exam Vital Signs Date Time Temp Pulse Resp B/P (MAP) Pulse Ox O2 Delivery O2 Flow Rate FiO2 09/27/17 20:14 97.5 83 15 140/90 98 Room Air Sp02 EP Interpretation: reviewed, normal General Appearance: no apparent distress, alert, GCS 15, non-toxic Head: normocephalic, atraumatic Eyes: bilateral eye normal inspection, bilateral eye PERRL ENT: hearing grossly normal, normal pharynx, no angioedema, normal voice Neck: full range of motion, supple/symm/no masses Respiratory: chest non-tender, lungs clear, normal breath sounds, speaking full sentences Cardiovascular #1: regular rate, rhythm, no edema Gastrointestinal: normal bowel sounds, non tender, soft, non-distended, no guarding, no rebound Rectal: deferred Musculoskeletal: back normal, gait/station normal, normal range of motion, non- tender Neurologic: alert, oriented x3, responsive, motor strength/tone normal, sensory intact, speech normal Psychiatric: judgement/insight normal, memory normal, mood/affect normal, no suicidal/homicidal ideation Skin: normal color, no rash, warm/dry, well hydrated Medical Decision Making Diagnostic Impression: Primary Impression: Fatigue Additional Impression: Episodic lightheadedness ER Course I suspect the symptoms that the patient is presenting with is a nonemergent in etiology. Regarding the history, the patient has no history of structural heart disease or coronary artery disease, no family history of sudden , or syncope. On physical exam, the patient is not hypotensive, has no findings of CHF, and no significant cardiac murmur suggestive of valvular heart disease or cardiac outflow obstruction. The patient reports no history of seizure or head trauma. EKG showed no evidence of concerning findings of QT prolongation, Brugada syndrome or significant ST changes suggestive of acute ischemia, dysrhythmias or significant conduction abnormalities. On laboratory evaluation , blood sugar was normal and the patient is not anemic. The patient was counseled that, though unlikely, the possibility of an emergent cause of syncope may be present and that the patient should return immediately if symptoms persist or worsen. I believe the patient is stable for discharge to followup with her PMD for further workup. See Medical record. EKG Diagnostic Results Rate: bradycardiac Rhythm: other - S.bradycardia Rhythm Strip Diag. Results EP Interpretation: yes Rate: 50s Rhythm: no PVC's, no ectopy, other - s.bradycardia Chest X-Ray Diagnostic Results Chest X-Ray Diagnostic Results : Chest X-Ray Ordered: Yes # of Views/Limited/Complete: 1 View Indication: Shortness of Breath EP Interpretation: Yes Interpretation: no consolidation, no effusion, no pneumothorax, no acute cardiopulmonary disease Impression: No acute disease Electronically Signed by: Doe Last Vital Signs Date Time Temp Pulse Resp B/P (MAP) Pulse Ox O2 Delivery O2 Flow Rate FiO2 09/27/17 20:28 97.5 83 15 140/90 98 Room Air Status: improved Disposition: HOME, SELF-CARE Condition: Improved Referrals: NOT CHOSEN [facility]/,REFERRING (PCP) Patient Instructions: Near-Syncope, Welm-mb-Adsc, Weakness SHABBIR GUTIERREZ D.O. Sep 27, 2017 23:01
[2017-09-27 23:22] VITALS: BP 130/87
[2017-09-28 02:02] LABS: APPEARANCE,URINE SLIGHTLY CLOUDY; COLOR,URINE YELLOW; PH,URINE 7 (4.5-8.0); PROTEIN,URINE NEGATIVE (NEGATIVE)
[2017-09-28 02:03] LABS: BILIRUBIN, URINE NEGATIVE (NEGATIVE); GLUCOSE, URINE (UA) NEGATIVE (NEGATIVE); KETONES,URINE NEGATIVE (NEGATIVE); LEUKOCYTE ESTERASE ,URINE NEGATIVE (NEGATIVE); NITRITE,URINE NEGATIVE (NEGATIVE); UROBILINOGEN,URINE NORMAL MG/DL (0.0-1.0)
[2017-09-28 02:13] LABS: HEMATOCRIT 42.9 % (42.0-52.0); HEMOGLOBIN 14.5 G/DL (14.2-18.0); MEAN CORPUSCULAR VOLUME 90 FL (80-99); PLATELET COUNT 274 K/UL (150-450); RED BLOOD COUNT 4.79 M/UL (4.70-6.10); RED CELL DISTRIBUTION WIDTH 11.7 % (11.6-14.8); WHITE BLOOD COUNT 9.2 K/UL (4.8-10.8)
[2017-09-28 02:14] LABS: BASOPHILS % (AUTO) 0.7 % (0.0-2.0); EOSINOPHILS % (AUTO) 5.8 % (0.0-3.0); LYMPHOCYTES % (AUTO) 31.3 % (20.0-45.0); MONOCYTES % (AUTO) 8.5 % (1.0-10.0); NEUTROPHILS % (AUTO) 53.7 % (45.0-75.0)
[2017-09-28 02:23] LABS: SODIUM 142 MMOL/L (136-145)
[2017-09-28 02:24] LABS: ALANINE AMINOTRANSFERASE 72 U/L (12-78); ANION GAP 10 mmol/L (5-15); ASPARTATE AMINO TRANSFERASE 33 U/L (15-37); BILIRUBIN,TOTAL 0.2 MG/DL (0.2-1.0); BLOOD UREA NITROGEN 13 mg/dL (7-18); CALCIUM 9.5 MG/DL (8.5-10.1); CARBON DIOXIDE 27 MMOL/L (21-32); CHLORIDE 105 MMOL/L (98-107); CREATININE 0.9 MG/DL (0.55-1.30); POTASSIUM 3.8 MMOL/L (3.5-5.1)
[2017-09-28 02:25] LABS: ALBUMIN/GLOBULIN RATIO 1.2 (1.0-2.7); ALKALINE PHOSPHATASE 86 U/L (46-116); CKMB 0.7 NG/ML (0.0-3.6); CREATINE KINASE 104 U/L (26-140)
--- NOTE | 2017-09-28 14:17 | Diagnostic Imaging Report ---
Indication: Dyspnea Comparison: 06/04/2017 A single view chest radiograph was obtained. Findings: Cardiomediastinal appearance is within normal limits for age. Pulmonary vascularity is appropriate. The diaphragmatic contour is smooth and costophrenic angles are sharp. No pleural effusions are identified. The bones are unremarkable. Impression: No acute findings
--- NOTE | 2017-09-30 16:53 | Cardiology Report ---
APPROVED REPORT EKG Measurement Heart [id number] HI [id number] Sinus bradycardia Otherwise normal ECG
== END 2017-09-27 23:22 | disposition home or self-care (01) ==
LOC: EMR 21:46
DX: R53.83 Other fatigue (principal); R42 Dizziness and giddiness; Z88.0 Allergy status to penicillin; Z91.041 Radiographic dye allergy status; Z88.8 Allergy status to other drugs, medicaments and biological substances
CPT/HCPCS: 36415; 71045; 80053; 80307; 81003; 82550; 82553; 84484; 85025; 93005; 99284

== ENCOUNTER 2017-10-09 13:46 | Emergency (ER) | payer MEDICAID ==
[~2017-10-09] VITALS: Ht 175.3 cm; Wt 104.3 kg
[2017-10-09 14:31] LABS: APPEARANCE,URINE SLIGHTLY CLOUDY; BILIRUBIN, URINE NEGATIVE (NEGATIVE); GLUCOSE, URINE (UA) NEGATIVE (NEGATIVE); KETONES,URINE 1+ (NEGATIVE); LEUKOCYTE ESTERASE ,URINE NEGATIVE (NEGATIVE); NITRITE,URINE NEGATIVE (NEGATIVE); PH,URINE 5 (4.5-8.0); PROTEIN,URINE 1+ (NEGATIVE); UROBILINOGEN,URINE NORMAL MG/DL (0.0-1.0)
[2017-10-09 14:37] LABS: COLOR,URINE YELLOW
--- NOTE | 2017-10-09 14:37 | Emergency Room Report ---
History of Present Illness General Chief Complaint: Male Urogenital Problems Present Illness HPI 32-year-old male presents to the emergency department complaining of 7 on a 10 in severity intermittent sharp pain in the lower back that radiates down into the lower abdomen and testicular area. Patient reports testicular fullness and 4/10 in severity testicular discomfort. Patient states onset of his symptoms have been since Sunday after plain possible. Patient denies trauma or fall he denies appreciable muscle strain. Patient reports that his pain is exacerbated upon certain movements such as bending forward to stand up he has sharp exacerbation of his low back pain. Patient states that when he is standing straight up that he has some mild relief however pain is still present. He denies fevers, chills, dysuria, hematuria, penile discharge, constipation or diarrhea. Patient is swollen tender lymph nodes or joint pain. Denies numbness tingling or loss of sensation or gross motor movements of the extremities, incontinence of bowel or bladder. Denies CP, Palpitations, LOC, AMS , dizziness, Changes in Vision, Sensation, paresthesias, or a sudden severe headache. Allergies: Coded Allergies: ESOMEPRAZOLE (Verified Allergy, Severe, 06/11/17) IODINATED CONTRAST- ORAL AND IV DYE (Verified Allergy, Intermediate, Rash , 06/11/17) PENICILLINS (Verified Allergy, Unknown, 06/11/17) Patient History Past Medical History: see triage record Past Surgical History: none Pertinent Family History: none Reviewed Nursing Documentation: PMH: Agreed, PSxH: Agreed Nursing Documentation-PMH Hx Gastrointestinal Problems: Yes - Hiatal Hernia Review of Systems All Other Systems: negative except mentioned in HPI Physical Exam Vital Signs Date Time Temp Pulse Resp B/P (MAP) Pulse Ox O2 Delivery O2 Flow Rate FiO2 10/09/17 14:00 97.8 82 16 131/82 98 Room Air 97.9 Sp02 EP Interpretation: reviewed, normal General Appearance: no apparent distress, alert, GCS 15, non-toxic Head: normocephalic, atraumatic ENT: hearing grossly normal, normal voice Neck: full range of motion Respiratory: chest non-tender, lungs clear, normal breath sounds, speaking full sentences Cardiovascular #1: regular rate, rhythm Gastrointestinal: normal bowel sounds, non tender, soft Rectal: deferred Genitourinary: normal inspection, no CVA tenderness, scrotum normal, other - cremasteric reflex intact. Musculoskeletal: back normal, gait/station normal, normal range of motion, tender - Bilateral lumbar paraspinal TTP, no midline ttp, FROM with pain. ambulatory. Neurologic: alert, oriented x3, responsive, motor strength/tone normal, sensory intact, speech normal, grossly normal Psychiatric: judgement/insight normal Skin: normal color, no rash, warm/dry, well hydrated Lymphatic: no adenopathy Medical Decision Making PA Attestation Dr. peck is my supervising Physician whom patient management has been discussed with. Diagnostic Impression: Primary Impression: Back pain Qualified Codes: M54.5 - Low back pain Additional Impressions: Hydrocele of testis Hydrocele, bilateral ER Course 32-year-old male presents to the emergency department complaining of 7 on a 10 in severity intermittent sharp pain in the lower back that radiates down into the lower abdomen and testicular area. Patient reports testicular fullness and 4/10 in severity testicular discomfort. Patient states onset of his symptoms have been since Sunday after plain possible. Patient denies trauma or fall he denies appreciable muscle strain. Patient reports that his pain is exacerbated upon certain movements such as bending forward to stand up he has sharp exacerbation of his low back pain. Patient states that when he is standing straight up that he has some mild relief however pain is still present. He denies fevers, chills, dysuria, hematuria, penile discharge, constipation or diarrhea. Patient is swollen tender lymph nodes or joint pain. Denies numbness tingling or loss of sensation or gross motor movements of the extremities, incontinence of bowel or bladder. Denies CP, Palpitations, LOC, AMS , dizziness, Changes in Vision, Sensation, paresthesias, or a sudden severe headache. Ddx considered but are not limited to testicular torsion, epididymitis, orchitis , abscess, hernia, Herniated disc, low back pain, sciatica, radiculopathy, STD just to name a few Vital signs: are WNL, pt. is afebrile H&PE are most consistent with testicular torsion as cremasterics reflex is Present and Phren sign is negative there is only very mild decrease in pain upon elevation of testicles. no LAD. no D/C noted. no evidence of Hernia . Pt. ambulatory, no evidence of spinal chord injury/ cauda equina. ORDERS: -UA: elevated RBC's and presence of occult blood, no nitrites, no bacteria or increased inflammatory. - Testicular ultrasound: bilateral hydrocele noted. NO torsion. -CT Abdomen/Pelvis NO Contrast: "unremarkable/ no acute pathology other than incidental finding of fatty liver"--Per official radiology report- Please see report for specific details. ED INTERVENTIONS: - IV Fluids -Toradol IV -Morphine IV D.w pt. the results of his laboratory and imaging studies. d/w pt. conservative treatment, and to follow up with a primary care provider. pt given a list of primary care clinics for follow up. d/w pt. to return to the ED with worsening or new symptoms. DISCHARGE: At this time pt. is stable for d/c to home. Will provide printed patient care instructions, and any necessary prescriptions. Care plan and follow up instructions have been discussed with the patient prior to discharge. Labs Test 10/09/17 14:12 Urine Color Yellow Urine Appearance Slightly cloudy Urine pH 5 (4.5-8.0) Urine Specific [place] 1.025 (1.005-1.035) Urine Protein 1+ (NEGATIVE) Urine Glucose (UA) Negative (NEGATIVE) Urine Ketones 1+ (NEGATIVE) Urine Occult Blood 2+ (NEGATIVE) Urine Nitrite Negative (NEGATIVE) Urine Bilirubin Negative (NEGATIVE) Urine Urobilinogen Normal MG/DL (0.0-1.0) Urine Leukocyte Esterase Negative (NEGATIVE) Urine RBC 5-10 /HPF (0 - 0) Urine WBC 0-2 /HPF (0 - 0) Urine Squamous Epithelial Cells Few /LPF (NONE/OCC) Urine Bacteria Few /HPF (NONE) CT/MRI/US Diagnostic Results CT/MRI/US Diagnostic Results #1: Imaging Test Ordered: CT Abdomen/ Pelvis NO CONTRAST Impression "unremarkable/ no acute pathology other than incidental finding of fatty liver "--Per official radiology report- Please see report for specific details. CT/MRI/US Diagnostic Results #2: Imaging Test Ordered: Testicular US. Impression " small bilateral hydrocele noted. NO torsion." Per official radiology report- Please see report for specific details. Last Vital Signs Date Time Temp Pulse Resp B/P (MAP) Pulse Ox O2 Delivery O2 Flow Rate FiO2 10/09/17 14:00 97.8 82 16 131/82 98 Room Air 97.9 Disposition: HOME, SELF-CARE Condition: Stable Scripts Methocarbamol* (ROBAXIN-750*) 750 Mg Tablet 750 MG PO QID, #28 TAB 0 Refills Prov: Sridevi Peng 10/09/17 Lidocaine (Lidoderm) 1 Each Adh..patch 1 PATCH TOPIC DAILY, #25 PATCH 0 Refills Patch(es) may remain in place for up to 12 hours in any 24-hour period. Prov: Sridevi Peng 10/09/17 Ibuprofen* (MOTRIN*) 600 Mg Tablet 600 MG ORAL THREE TIMES A DAY, #30 TAB 0 Refills Prov: Sridevi Peng 10/09/17 Departure Forms: Return to Work Return to Work Date: Oct 10, 2017 Work Restrictions: No Heavy Lifting Other Restrictions: light duty x 1 week. Return to Full Activity: Oct 17, 2017 Patient Instructions: Back Pain, Adult, [id number], Hydrocele, Adult Additional Instructions: Take medications as directed. Follow up with a Primary Care Provider in 3-5 days, even if your symptoms have resolved. if your symptoms persist may require MRI to evaluate your low back pain. --Please review list of primary care clinics, if you do not already have a primary care provider Return sooner to ED if new symptoms occur, or current symptoms become worse. - Please note that this Emergency Department Report was dictated using [employer] and radio repairer technology software, occasionally this can lead to erroneous entry secondary to interpretation by the dictation equipment. Sridevi Peng Oct 09, 2017 14:37
[2017-10-09] MEDS ORDERED: Ketorolac 30mg Inj IV ONE (15:00)
[2017-10-09] MEDS ORDERED: Morphine Sulfate 4mg/ml Inj IVP ONE (15:30)
--- NOTE | 2017-10-09 15:43 | Diagnostic Imaging Report ---
Indication: Abdominal pain Technique: Continuous helical transaxial imaging of the abdomen and pelvis was obtained from the lung bases to the pubic symphysis. No intravenous contrast was administered. Coronal 2-D reformats were also obtained. Automatic Exposure Control was utilized. Total Dose length Product (DLP): 1030.[address] Dose Index Volume (CTDIvol): 19.28 mGy Comparison: 01/21/2015 Findings: Hiatal hernia noted. The liver is diffusely hypodense consistent with fatty infiltration. Gallbladder is unremarkable. Spleen is normal size. There is no hydronephrosis or evidence of renal stones. The appendix is normal. There are few diverticula in the colon. There is no evidence of diverticulitis. No free fluid or free air or evidence of bowel obstruction demonstrated. IMPRESSION: Moderate fatty infiltration of the liver. Normal appendix Minimal diverticulosis. No evidence of diverticulitis. Hiatal hernia The CT scanner at [facility] is accredited by the [employer] and the scans are performed using dose optimization techniques as appropriate to a performed exam including Automatic Exposure control.
[2017-10-09] MEDS ORDERED: ROBAXIN-750750 MG PO (16:25)
[2017-10-09] MEDS ORDERED: IBUPROFEN600 MG ORAL (16:25)
[2017-10-09] MEDS ORDERED: LIDODERM700 M1 TOPIC (16:25)
[2017-10-09 16:38] VITALS: BP 133/77
--- NOTE | 2017-10-09 16:42 | Diagnostic Imaging Report ---
Indication:Scrotal pain Technique: Real time grayscale and duplex Doppler imaging of the scrotum performed. Comparison: None Findings: The size, contour, and echogenicitiy of the testis appear normal bilaterally. There is no testicular mass or evidence of torsion. Small hydroceles noted bilaterally. There is good doppler evidence of blood flow within both testes. Epididimi are unremarkable. The right testis measures 4.5 x 2.2 x 3.3 cm. Left testis 4.6 x 2.1 x 3.1 cm. Impression: No acute findings. No evidence of testicular mass or torsion. Small bilateral hydroceles
== END 2017-10-09 16:40 | disposition home or self-care (01) ==
LOC: EMR 16:00
DX: N43.3 Hydrocele, unspecified (principal); M54.5 Low back pain; Z88.8 Allergy status to other drugs, medicaments and biological substances; Z88.0 Allergy status to penicillin; Z91.041 Radiographic dye allergy status; R10.30 Lower abdominal pain, unspecified
CPT/HCPCS: 74176; 76870; 81003; 96361; 96374; 96375; 99284; J1885; J2270

== ENCOUNTER 2017-11-03 03:11 | Emergency (ER) | payer SELFPAY ==
[~2017-11-03] VITALS: Ht 175.3 cm; Wt 104.3 kg
[~2017-11-03 03:11] MED LIST changes: +LIDODERM700 M1 TOPIC; +ROBAXIN-750750 MG PO
[2017-11-03] MEDS ORDERED: Ipratropium 0.02% Inh Soln 2.5ml UD HHN ONE (03:30)
[2017-11-03] MEDS ORDERED: Albuterol ud Inhalation HHN ONE (03:30)
[2017-11-03 03:33] LABS: BASOPHILS % (AUTO) 0.8 % (0.0-2.0); EOSINOPHILS % (AUTO) 4.6 % (0.0-3.0); HEMATOCRIT 44.1 % (42.0-52.0); HEMOGLOBIN 15.1 G/DL (14.2-18.0); LYMPHOCYTES % (AUTO) 32.7 % (20.0-45.0); MEAN CORPUSCULAR VOLUME 87 FL (80-99); MONOCYTES % (AUTO) 10.6 % (1.0-10.0); NEUTROPHILS % (AUTO) 51.3 % (45.0-75.0); PLATELET COUNT 278 K/UL (150-450); RED BLOOD COUNT 5.04 M/UL (4.70-6.10); RED CELL DISTRIBUTION WIDTH 11.3 % (11.6-14.8); WHITE BLOOD COUNT 9.7 K/UL (4.8-10.8)
[2017-11-03 03:44] LABS: ANION GAP 8 mmol/L (5-15); BLOOD UREA NITROGEN 16 mg/dL (7-18); CALCIUM 9.3 MG/DL (8.5-10.1); CARBON DIOXIDE 27 MMOL/L (21-32); CHLORIDE 104 MMOL/L (98-107); CREATININE 0.9 MG/DL (0.55-1.30); POTASSIUM 3.6 MMOL/L (3.5-5.1); SODIUM 139 MMOL/L (136-145)
[2017-11-03 03:48] LABS: ALANINE AMINOTRANSFERASE 69 U/L (12-78); ALBUMIN 3.6 G/DL (3.4-5.0); ALBUMIN/GLOBULIN RATIO 0.9 (1.0-2.7); ALKALINE PHOSPHATASE 93 U/L (46-116); ASPARTATE AMINO TRANSFERASE 29 U/L (15-37); BILIRUBIN,TOTAL 0.3 MG/DL (0.2-1.0)
--- NOTE | 2017-11-03 03:53 | Emergency Room Report ---
History of Present Illness General Chief Complaint: General Complaint Source: Patient Present Illness HPI 32-year-old male presents ED for evaluation. Patient brought in by EMS. Patient states for one week history of experiencing a cough which is getting worse. Notes blood-tinged sputum today. States he feels febrile. Afebrile in triage. Denies chest pain or shortness of breath. Denies abdominal pain. States he feels nauseous. No other aggravating or relieving factors. Denies any other associated symptoms Allergies: Coded Allergies: ESOMEPRAZOLE (Verified Allergy, Severe, 06/11/17) IODINATED CONTRAST- ORAL AND IV DYE (Verified Allergy, Intermediate, Rash , 06/11/17) PENICILLINS (Verified Allergy, Unknown, 06/11/17) Patient History Past Medical History: none Past Surgical History: none Pertinent Family History: none Social History: Denies: smoking, alcohol use, drug use Immunizations: UTD Reviewed Nursing Documentation: PMH: Agreed, PSxH: Agreed Review of Systems All Other Systems: negative except mentioned in HPI Physical Exam Vital Signs Date Time Temp Pulse Resp B/P (MAP) Pulse Ox O2 Delivery O2 Flow Rate FiO2 11/03/17 03:11 98.5 89 18 131/98 99 Room Air 98.4 Sp02 EP Interpretation: reviewed, normal General Appearance: no apparent distress, alert, GCS 15, non-toxic Head: normocephalic, atraumatic Eyes: bilateral eye normal inspection, bilateral eye PERRL ENT: hearing grossly normal, normal pharynx, no angioedema, normal voice Neck: full range of motion, supple/symm/no masses Respiratory: chest non-tender, lungs clear, normal breath sounds, speaking full sentences Cardiovascular #1: regular rate, rhythm, no edema Cardiovascular #2: 2+ carotid (R), 2+ carotid (L), 2+ radial (R), 2+ radial (L) , 2+ dorsalis pedis (R), 2+ dorsalis pedis (L) Gastrointestinal: normal bowel sounds, non tender, soft, non-distended, no guarding, no rebound Rectal: deferred Genitourinary: normal inspection, no CVA tenderness Musculoskeletal: back normal, gait/station normal, normal range of motion, non- tender Neurologic: alert, oriented x3, responsive, motor strength/tone normal, sensory intact, speech normal Psychiatric: judgement/insight normal, memory normal, mood/affect normal, no suicidal/homicidal ideation Reflexes: 3+ bicep (R), 3+ bicep (L), 3+ tricep (R), 3+ tricep (L), 3+ knee (R) , 3+ knee (L) Skin: normal color, no rash, warm/dry, well hydrated Lymphatic: no adenopathy Medical Decision Making Diagnostic Impression: Primary Impression: Pneumonia Qualified Codes: J18.1 - Lobar pneumonia, unspecified organism ER Course Hospital Course 32-year-old male presents ED complaining of cough, weakness, spitting up blood Differential diagnoses include: URI, bronchitis, asthma/COPD, pneumonia Clinical course Patient placed on stretcher. After initial history, physical exam reveals a male in no acute distress. Bilateral TM unremarkable. No pharyngeal erythema. No tonsillar exudates. No lymphadenopathy. lungs clear. I ordered labs, IV fluids, nebs, pepcid, promethazine/codeine, chest x-ray. Labs reviewed-no leukocytosis noted, hemoglobin/hematocrit stable, electrolytes okay Chest x-ray shows increased haziness in left lower lung field. Suggestive of pneumonia Discussed findings with patient. Per curb-65 criteria, patient does not require admission. Patient can be safely discharged to home with outpatient therapy. Patient agrees with plan. Diagnosis - pneumonia Stable and discharged home with prescriptions for Zpack, promethazine/codeine. Instructed to followup with PMD. Return to ED if symptoms recur or worsen Labs Test 11/03/17 03:23 White Blood Count 9.7 K/UL (4.8-10.8) Red Blood Count 5.04 M/UL (4.70-6.10) Hemoglobin 15.1 G/DL (14.2-18.0) Hematocrit 44.1 % (42.0-52.0) Mean Corpuscular Volume 87 FL (80-99) Mean Corpuscular Hemoglobin 29.8 PG (27.0-31.0) Mean Corpuscular Hemoglobin Concent 34.2 G/DL (32.0-36.0) Red Cell Distribution Width 11.3 % (11.6-14.8) Platelet Count 278 K/UL (150-450) Mean Platelet Volume 8.9 FL (6.5-10.1) Neutrophils (%) (Auto) 51.3 % (45.0-75.0) Lymphocytes (%) (Auto) 32.7 % (20.0-45.0) Monocytes (%) (Auto) 10.6 % (1.0-10.0) Eosinophils (%) (Auto) 4.6 % (0.0-3.0) Basophils (%) (Auto) 0.8 % (0.0-2.0) Sodium Level 139 MMOL/L (136-145) Potassium Level 3.6 MMOL/L (3.5-5.1) Chloride Level 104 MMOL/L (98-107) Carbon Dioxide Level 27 MMOL/L (21-32) Anion Gap 8 mmol/L (5-15) Blood Urea Nitrogen 16 mg/dL (7-18) Creatinine 0.9 MG/DL (0.55-1.30) Estimat Glomerular Filtration Rate > 60 mL/min (>60) Glucose Level 101 MG/DL (74-106) Calcium Level 9.3 MG/DL (8.5-10.1) Total Bilirubin 0.3 MG/DL (0.2-1.0) Aspartate Amino Transf (AST/SGOT) 29 U/L (15-37) Alanine Aminotransferase (ALT/SGPT) 69 U/L (12-78) Alkaline Phosphatase 93 U/L (46-116) Total Protein 7.5 G/DL (6.4-8.2) Albumin 3.6 G/DL (3.4-5.0) Globulin 3.9 g/dL Albumin/Globulin Ratio 0.9 (1.0-2.7) Lipase 173 U/L (73-393) Chest X-Ray Diagnostic Results Chest X-Ray Diagnostic Results : Chest X-Ray Ordered: Yes # of Views/Limited/Complete: 1 View Indication: Chest Pain EP Interpretation: Yes Interpretation: no effusion, no pneumothorax Impression: Other - LLL infiltrate Electronically Signed by: Electronically signed by Arslan Pennington MD Last Vital Signs Date Time Temp Pulse Resp B/P (MAP) Pulse Ox O2 Delivery O2 Flow Rate FiO2 11/03/17 03:11 98.5 89 18 131/98 99 Room Air 98.4 Status: improved Disposition: HOME, SELF-CARE Condition: Stable Scripts Codeine/Promethazine Hcl* (PROMETHAZINE-CODEINE SYRUP*) 118 Ml Syrup 5 ML ORAL Q6H Y for For Cough, #118 ML 0 Refills Prov: ARSLAN PENNINGTON M.D. 11/03/17 Azithromycin* (ZITHROMAX*) 250 Mg Tablet 250 MG ORAL DAILY, #6 TAB 0 Refills Take two tablets by mouth today, then take one tablet by mouth daily for four days Prov: ARSLAN PENNINGTON M.D. 11/03/17 Referrals: NOT CHOSEN RACHEL/,REFERRING (PCP) ARSLAN PENNINGTON M.D. Nov 03, 2017 03:53
[2017-11-03] MEDS ORDERED: PROMETHAZINE-C118 M1 ORAL (04:28)
[2017-11-03] MEDS ORDERED: AZITHROMYCIN250 MG ORAL (04:28)
[2017-11-03 04:38] VITALS: BP 128/88
[2017-11-03 04:40] VITALS: BP 128/88
--- NOTE | 2017-11-03 08:48 | Diagnostic Imaging Report ---
Indication: Cough Technique: XRAY Chest 1v Comparison: 09/27/2017 Findings: Cardiomediastinal silhouette is within normal limits. There is poor inspiration but no obvious consolidation, pneumothorax or pleural effusion. Osseous structures demonstrate no acute abnormality. Impression: No acute cardiopulmonary disease.
== END 2017-11-03 04:41 | disposition home or self-care (01) ==
LOC: EDBD 03:11 → EMR 03:21
DX: J18.1 Lobar pneumonia, unspecified organism (principal); Z88.0 Allergy status to penicillin; Z88.8 Allergy status to other drugs, medicaments and biological substances; Z91.041 Radiographic dye allergy status
CPT/HCPCS: 36415; 71045; 80053; 83690; 85025; 94640; 94664; 96361; 96374; 96375; 99284; J2405; S0028

== ENCOUNTER 2017-11-27 15:35 | Emergency (ER) | payer SELFPAY ==
[~2017-11-27] VITALS: Ht 175.3 cm; Wt 104.3 kg
[~2017-11-27 15:35] MED LIST changes: +AZITHROMYCIN250 MG ORAL; +PROMETHAZINE-C118 M1 ORAL
[2017-11-27 16:00] VITALS: BP 128/87
--- NOTE | 2017-11-27 16:04 | Emergency Room Report ---
History of Present Illness General Chief Complaint: Sore Throat Source: Patient Present Illness HPI 32 yo male patient present to ER complaining of cough and sore throat. Reports dry cough, denies blood in sputum. Reports FB sensation in throat, denies eating or drinking solid objects or batteries. Reports pain with swallowing food, denies difficulty drinking fluids. Seen recently in ER for pneumonia, reports resolution of symptoms. Patient denies hx of asthma or cardiovascular disease. Denies fever, chest pain, abdominal pain, JOAQUIN, vision changes, nausea, vomiting, diarrhea. Allergies: Coded Allergies: ESOMEPRAZOLE (Verified Allergy, Severe, 06/11/17) IODINATED CONTRAST- ORAL AND IV DYE (Verified Allergy, Intermediate, Rash , 06/11/17) PENICILLINS (Verified Allergy, Unknown, 06/11/17) Patient History Past Medical History: see triage record Reviewed Nursing Documentation: PMH: Agreed; PSxH: Agreed Review of Systems All Other Systems: negative except mentioned in HPI Physical Exam Vital Signs Date Time Temp Pulse Resp B/P (MAP) Pulse Ox O2 Delivery O2 Flow Rate FiO2 11/27/17 15:46 98.1 76 19 128/87 97 Room Air 98.1 Sp02 EP Interpretation: reviewed, normal General Appearance: well appearing, no apparent distress, alert, GCS 15, non- toxic Head: normocephalic, atraumatic Eyes: bilateral eye normal inspection, bilateral eye PERRL ENT: hearing grossly normal, normal pharynx, no angioedema, normal voice, TMs + canals normal, uvula midline, moist mucus membranes, other - no erythema, no exudates, no uvular deviation Neck: full range of motion, no bony tend, tender Respiratory: lungs clear, normal breath sounds, no rhonchi, no respiratory distress, no accessory muscle use, speaking full sentences, wheezing - diffuse, intermittent, other - no stridor Cardiovascular #1: regular rate, rhythm, no edema Gastrointestinal: non tender, soft, no mass, non-distended, no guarding, no rebound Musculoskeletal: back normal, digits/nails normal, gait/station normal, normal range of motion, non-tender Neurologic: alert, oriented x3, responsive, motor strength/tone normal, sensory intact Psychiatric: mood/affect normal Skin: no rash Lymphatic: no adenopathy Medical Decision Making PA Attestation Dr. Marrero is my supervising Physician whom patient management has been discussed with. Diagnostic Impression: Primary Impression: Sore throat Additional Impression: Wheeze ER Course Pt presents to ED c/o sore throat and cough symptoms. DDX considered but are not limited to asthma, viral URI, influenza, bronchitis. DDX considered but are not limited to pharyngitis, laryngitis, URI, peritonsillar abscess, tonsillitis. Low suspicion for peritonsillar abscess, no neck stiffness, no hot potato voice , no stridor. On PE, chest is TTP; chest pain likely musculoskeletal in nature secondary to cough, does not require cardiac workup at this time. Patient instructed to take NSAIDs as needed for pain symptoms. VITAL SIGNS are WNL, patient is afebrile. Ordered breathing treatment and medication. ER COURSE Soft tissue Xray of neck negative for acute disease or FB. Patient provided with viscous lidocaine. Patient reports throat pain improved following administration of medication. Albuterol/Atrovent breathing treatment provided. Following treatment patient states no longer having difficulty with breathing. Patient is resting comfortably in no acute distress. Lungs clear to auscultation. Informed patient pain and sore throat likely secondary to cough, likely viral etiology. Followup with primary care provider for further diagnosis and treatment. No crackles, no fever, does not require abx treatment at this time. DISCHARGE: -Rx given for Prednisone. -Rx provided for Albuterol MDI. -Rx provided for Tylenol for pain. Salt water gargles Tylenol for pain and fever symptoms At this time pt is stable for d/c to home. Patient is resting comfortably in no acute distress, nontoxic appearing, able to answer questions without difficulty , smiling. Patient to take medications as instructed Will provide with patient care instructions and any necessary prescriptions. Care plan and follow-up instructions provided. Patient instructed to follow-up with primary care provider in 3 - 5 days. Patient questions asked and answered. Patient reports understanding and agreement to treatment plan. ER precautions given. Patient instructed to return to ER immediately for any new or worsening of symptoms including but not limited to increasing SOB, persistent fever. Other X-Ray Diagnostic Results Other X-Ray Diagnostic Results : X-Ray ordered: soft tissue neck # of Views/Limited Vs Complete: 2 View Indication: Pain EP Interpretation: Yes PA Xray: Interpretation reviewed, by supervising MD, and agrees with findings. Interpretation: no dislocation, no soft tissue swelling, no fractures Impression: No acute disease HERBERT Cuiibviktor Text Dimas Eubanks PA-C Last Vital Signs Date Time Temp Pulse Resp B/P (MAP) Pulse Ox O2 Delivery O2 Flow Rate FiO2 11/27/17 15:46 98.1 76 19 128/87 97 Room Air 98.1 Status: improved Disposition: HOME, SELF-CARE Condition: Stable Scripts Acetaminophen* (TYLENOL EXTRA STRENGTH*) 500 Mg Tablet 500 MG ORAL Q8H PRN for Prn Headache/Temp > 101, #30 TAB 0 Refills Prov: Jim Eubanks 11/27/17 Prednisone* (PREDNISONE*) 20 Mg Tablet 40 MG ORAL DAILY for 5 Days, #10 TAB Prov: Jim Eubanks 11/27/17 Albuterol Sulfate* (ALBUTEROL SULFATE MDI*) 8.5 Gm Hfa.aer.ad 2 PUFF INH Q6H, #1 INH 0 Refills Prov: Jim Eubanks 11/27/17 Patient Instructions: Acute Bronchitis, [id number], Sore Throat Additional Instructions: Followup with primary care provider in 3 -5 days. Take medications as directed. Patient questions asked and answered. ER precautions given, patient instructed to return to ER immediately for any new or worsening of symptoms. Jim Eubanks Nov 27, 2017 16:04
[2017-11-27] MEDS: Albuterol/Ipratropium 3ml neb HHN ONE (16:34)
[2017-11-27] MEDS ORDERED: ALBUTEROL SULF8.5 GM INH (16:43)
[2017-11-27] MEDS ORDERED: TYLENOL EXTRA500 MG ORAL (16:43)
[2017-11-27] MEDS ORDERED: PREDNISONE20 MG ORAL (16:43)
--- NOTE | 2017-11-27 16:46 | Diagnostic Imaging Report ---
Indication: Dysphagia and pain Technique: 2 views of the neck with soft tissue technique Comparison: 04/09/2016 Findings: Exam is somewhat limited due to body habitus. No prevertebral soft tissue swelling. No epiglottic swelling. No glottic narrowing or hypopharyngeal distention. No radiopaque foreign body. No significant interim change Impression: Negative
[2017-11-27] MEDS: Lidocaine 2% Visc 15ml soln ORAL ONE (16:55)
[2017-11-27 16:56] VITALS: BP 128/87
== END 2017-11-27 16:56 | disposition home or self-care (01) ==
LOC: EMR 16:21
DX: J02.9 Acute pharyngitis, unspecified (principal); R06.2 Wheezing; Z88.0 Allergy status to penicillin; Z88.8 Allergy status to other drugs, medicaments and biological substances; Z91.041 Radiographic dye allergy status
CPT/HCPCS: 70360; 94640; 94664; 99284; J7620

== ENCOUNTER 2018-01-13 18:01 | Emergency (ER) | payer SELFPAY ==
[~2018-01-13] VITALS: Ht 175.3 cm; Wt 108.9 kg
[~2018-01-13 18:01] MED LIST changes: +ALBUTEROL SULF8.5 GM INH; +TYLENOL EXTRA500 MG ORAL
[2018-01-13 18:19] VITALS: BP 134/89
--- NOTE | 2018-01-13 19:34 | Emergency Room Report ---
History of Present Illness General Chief Complaint: General Complaint Present Illness HPI 32-year-old male presents to the emergency department with very vague complaints of feeling increased fatigue, "cloudiness "and has had several left- sided headaches that last several minutes before going away completely over the course of the last week. He reports history of fatigue often however he feels his symptoms have exacerbated this past week. He reports increase in anxiety. Patient states he has not followed up with primary care for his symptoms or after previous ED visits for similar symptoms. He denies pain at this time Denies CP, Palpitations, LOC, AMS, dizziness, Changes in Vision, Sensation, paresthesias, or a sudden severe headache. Allergies: Coded Allergies: ESOMEPRAZOLE (Verified Allergy, Severe, 06/11/17) IODINATED CONTRAST- ORAL AND IV DYE (Verified Allergy, Intermediate, Rash , 06/11/17) PENICILLINS (Verified Allergy, Unknown, 06/11/17) Patient History Past Medical History: see triage record Past Surgical History: none Pertinent Family History: none Reviewed Nursing Documentation: PMH: Agreed; PSxH: Agreed Review of Systems All Other Systems: negative except mentioned in HPI Physical Exam Vital Signs Date Time Temp Pulse Resp B/P (MAP) Pulse Ox O2 Delivery O2 Flow Rate FiO2 01/13/18 18:05 97.9 89 20 134/89 97 Room Air 97.9 Sp02 EP Interpretation: reviewed, normal General Appearance: no apparent distress, alert, GCS 15, non-toxic Head: normocephalic, atraumatic Eyes: bilateral eye normal inspection, bilateral eye PERRL ENT: hearing grossly normal, normal pharynx, normal voice, TMs + canals normal Neck: full range of motion, no meningismus, no bony tend Respiratory: chest non-tender, lungs clear, normal breath sounds, no rhonchi, no wheezing, speaking full sentences Cardiovascular #1: regular rate, rhythm Gastrointestinal: non tender, soft Musculoskeletal: back normal, gait/station normal, normal range of motion, non- tender Neurologic: alert, oriented x3, responsive, motor strength/tone normal, sensory intact, cerebellar normal, normal gait, speech normal, other - no facial droop, grossly normal Psychiatric: judgement/insight normal Skin: normal color, no rash, warm/dry, well hydrated Lymphatic: no adenopathy Medical Decision Making PA Attestation Dr. Marrero is my supervising Physician whom patient management has been discussed with. Diagnostic Impression: Primary Impression: Fatigue Qualified Codes: R53.83 - Other fatigue Additional Impression: Frequent headaches ER Course 32-year-old male presents to the emergency department with very vague complaints of feeling increased fatigue, "cloudiness "and has had several left- sided headaches that last several minutes before going away completely over the course of the last week. He reports history of fatigue often however he feels his symptoms have exacerbated this past week. He reports increase in anxiety. Patient states he has not followed up with primary care for his symptoms or after previous ED visits for similar symptoms. He denies pain at this time Denies CP, Palpitations, LOC, AMS, dizziness, Changes in Vision, Sensation, paresthesias, or a sudden severe headache. Ddx considered but are not limited to migraine, SAH, Pseudomotor Cerebri,, Mass lesion, Cluster JOAQUIN, Tension JOAQUIN, Post lumbar puncture JOAQUIN, anemia, hypovolemia, anxiety reaction just to name a few. Vital signs: are WNL, pt. is afebrile H&PE are most consistent with headache without neurological deficit. possible anxiety ORDERS: - none required at this time, dx is clinical. ED INTERVENTIONS: - ativan 0.5mg PO -I do not identify an emergent condition at this time. With current presentation , pt. is stable for close outpatient follow up and conservative treatment. D/ w pt. to return promptly to ED with worsening or new symptoms.- Pt. (and or responsible democrat) verbalizes' understanding and agreement with proposed treatment plan.proposed treatment plan. DISCHARGE: At this time pt. is stable for d/c to home. Will provide printed patient care instructions, and any necessary prescriptions. Care plan and follow up instructions have been discussed with the patient prior to discharge. EKG Diagnostic Results EP Interpretation: dr. Marrero Rate: normal - 77 bpm Rhythm: NSR ST Segments: no acute changes ASA given to the pt in ED: No PA Scribe Text This Interpretation was scribed by HERBERT Peng. Last Vital Signs Date Time Temp Pulse Resp B/P (MAP) Pulse Ox O2 Delivery O2 Flow Rate FiO2 18 18:19 97.9 89 20 134/89 97 Room Air 97.9 Disposition: HOME, SELF-CARE Condition: Stable Scripts Multivitamins* (MULTIVITAMINS*) 1 Each Tablet 1 TAB ORAL DAILY, #30 TAB 0 Refills Prov: Sridevi Peng 01/13/18 Acetaminophen* (TYLENOL EXTRA STRENGTH*) 500 Mg Tablet 500 MG ORAL Q8H PRN for For Headache, #20 TAB 0 Refills Prov: Sridevi Peng 01/13/18 Referrals: NOT CHOSEN IPA/MD,REFERRING (PCP) Patient Instructions: Chronic Fatigue Syndrome, Fatigue, General Headache Without Cause, [id number] Additional Instructions: Take medications as directed. Follow up with a Primary Care Provider in 3-5 days, even if your symptoms have resolved. intermittent fatigue x months. Recommend Psychiatric Follow up for your anxious symptoms. --Please review list of primary care clinics, if you do not already have a primary care provider, Refer to [facility] for psychiatric evaluation if you are unable to see your PCP in a timely fashion. --Return sooner to ED if new symptoms occur, or current symptoms become worse. - Please note that this Emergency Department Report was dictated using [employer] tech technology software, occasionally this can lead to erroneous entry secondary to interpretation by the dictation equipment. Sridevi Peng January 13, 2018 19:34
[2018-01-13] MEDS ORDERED: LORazepam 0.5mg tab ORAL ONE (19:45)
[2018-01-13] MEDS ORDERED: MULTIVITAMINS1 EAC2 ORAL (20:08)
[2018-01-13] MEDS ORDERED: TYLENOL EXTRA500 MG ORAL (20:08)
[2018-01-13 20:32] VITALS: BP 127/78
[2018-01-13 20:33] VITALS: BP 127/78
--- NOTE | 2018-01-14 13:50 | Cardiology Report ---
APPROVED REPORT EKG Measurement Heart [id number] Normal sinus rhythm Normal ECG
== END 2018-01-13 20:33 | disposition home or self-care (01) ==
LOC: EMR 18:15
DX: R53.83 Other fatigue (principal); R51 Headache; Z88.0 Allergy status to penicillin; Z91.041 Radiographic dye allergy status
CPT/HCPCS: 93005; 99284

== ENCOUNTER 2018-03-23 15:17 | Emergency (ER) | payer SELFPAY ==
[~2018-03-23] VITALS: Ht 175.3 cm; Wt 108.9 kg
[~2018-03-23 15:17] MED LIST changes: +MULTIVITAMINS1 EAC2 ORAL
[2018-03-23 15:42] VITALS: BP 131/90
[2018-03-23] MEDS ORDERED: ZOFRAN4 M3 ORAL (16:03)
--- NOTE | 2018-03-23 16:07 | Emergency Room Report ---
History of Present Illness General Chief Complaint: Chest Pain Source: Patient, Medical Record Present Illness HPI Patient present with complaints of left-sided chest pain radiation to the left shoulder and the left arm he also Reports that he had pain to the left leg This started yesterday Denies any shortness of breath denies any back or flank pain denies any dysuria frequency Patient also reports that he had some discharge from his umbilical area Denies any fall or trauma Describes the pain as a sharp pain Denies any change with position or exertion Allergies: Coded Allergies: ESOMEPRAZOLE (Verified Allergy, Severe, 06/11/17) IODINATED CONTRAST- ORAL AND IV DYE (Verified Allergy, Intermediate, Rash , 06/11/17) PENICILLINS (Verified Allergy, Unknown, 06/11/17) Patient History Past Medical History: see triage record Pertinent Family History: none Reviewed Nursing Documentation: PMH: Agreed; PSxH: Agreed Review of Systems All Other Systems: negative except mentioned in HPI Physical Exam Vital Signs Date Time Temp Pulse Resp B/P (MAP) Pulse Ox O2 Delivery O2 Flow Rate FiO2 03/23/18 15:27 97.7 85 131/90 97 Room Air 97.7 03/23/18 15:42 18 Sp02 EP Interpretation: reviewed, normal General Appearance: well appearing, no apparent distress Head: normocephalic, atraumatic Eyes: bilateral eye PERRL, bilateral eye EOMI ENT: hearing grossly normal, normal pharynx, TMs + canals normal, uvula midline Neck: full range of motion, supple, no meningismus, no bony tend Respiratory: lungs clear, normal breath sounds, no rhonchi, no respiratory distress, no retraction, no accessory muscle use Cardiovascular #1: normal peripheral pulses, regular rate, rhythm, no edema, no gallop, no JVD, no murmur Gastrointestinal: normal bowel sounds, non tender, soft, no mass, no organomegaly, non-distended, no guarding, no hernia, no pulsatile mass, no rebound, other - Umbilical area was interrogated with a Q-tip no obvious discharge or fistulas, Genitourinary: no CVA tenderness Musculoskeletal: normal inspection Neurologic: oriented x3, responsive, chief physical therapist III-XII nml as tested, motor strength/ tone normal, sensory intact Psychiatric: mood/affect normal Skin: normal color, no rash, warm/dry, palpation normal Lymphatic: normal inspection, no adenopathy Medical Decision Making Diagnostic Impression: Primary Impression: Chest pain ER Course Patient is a fairly complex patient with multiple differential to consideration including but not limited to cardiac cardiopulmonary and vascular emergencies Patient has a fairly benign medical evaluation Chest x-ray was negative EKG is normal Patient's description does not sound to be necessarily consistent with cardiac pathology patient has blood work from October which were normal And at this time is stable for close outpatient follow-up EKG Diagnostic Results Rate: normal Rhythm: NSR ST Segments: no acute changes Rhythm Strip Diag. Results EP Interpretation: yes Rate: 66 Rhythm: NSR, no PVC's, no ectopy Chest X-Ray Diagnostic Results Chest X-Ray Diagnostic Results : Chest X-Ray Ordered: Yes # of Views/Limited/Complete: 1 View Indication: Chest Pain EP Interpretation: Yes Interpretation: no consolidation, no effusion, no pneumothorax Impression: No acute disease Electronically Signed by: Xiomara Soliman DO Last Vital Signs Date Time Temp Pulse Resp B/P (MAP) Pulse Ox O2 Delivery O2 Flow Rate FiO2 03/23/18 15:42 85 18 Room Air 03/23/18 15:42 97.7 131/90 97 97.7 Status: improved Disposition: HOME, SELF-CARE Condition: Stable Scripts Ondansetron* (ZOFRAN*) 4 Mg Tablet 4 MG ORAL Q12 PRN for Nausea & Vomiting, #12 TAB Prov: Xiomara Soliman DO 03/23/18 Patient Instructions: Nonspecific Chest Pain Additional Instructions: Patient is provided with the discharge instructions notified to follow up with primary doctor in the next 2-3 days otherwise return to the er with any worsening symptoms. Please note that this report is being documented using S[employer] technology. This can lead to erroneous entry secondary to incorrect interpretation by the dictating instrument. Xiomara Soliman DO Mar 23, 2018 16:07
[2018-03-23 16:09] VITALS: BP 131/90
--- NOTE | 2018-03-23 16:39 | Diagnostic Imaging Report ---
EXAM: XR Chest, 1 View CLINICAL HISTORY: CP TECHNIQUE: Frontal view of the chest. COMPARISON: Chest x-ray 11/03/17 FINDINGS: Lungs: Mild left lung base atelectasis or mild developing infiltrate. Pleural space: Unremarkable. No pneumothorax. Heart: Unremarkable. No cardiomegaly. Mediastinum: Unremarkable. Bones/joints: Unremarkable. IMPRESSION: Mild left lung base atelectasis or mild developing infiltrate.
--- NOTE | 2018-03-25 19:34 | Cardiology Report ---
APPROVED REPORT EKG Measurement Heart [id number] Sinus rhythm
== END 2018-03-23 16:11 | disposition home or self-care (01) ==
LOC: EMR 15:40
DX: R07.9 Chest pain, unspecified (principal); Z88.0 Allergy status to penicillin; Z91.041 Radiographic dye allergy status
CPT/HCPCS: 71045; 93005; 99283

== ENCOUNTER 2018-05-24 14:07 | Emergency (ER) | payer SELFPAY ==
[~2018-05-24] VITALS: Ht 175.3 cm; Wt 108.9 kg
[~2018-05-24 14:07] MED LIST changes: +ZOFRAN4 M3 ORAL
[2018-05-24 14:18] VITALS: BP 138/87
[2018-05-24] MEDS ORDERED: GI Cocktail 50ml ORAL ONE (14:30)
--- NOTE | 2018-05-24 14:34 | Emergency Room Report ---
History of Present Illness General Chief Complaint: Abdominal Pain Source: Patient Present Illness HPI Patient is a 33-year-old male who presented after increased epigastric pain. Patient reports having a recent urinary tract infection for which he was taking ciprofloxacin. He was having sharp pain predominant in the right upper abdomen. He denies any vomiting or diarrhea. He reports having some mild associated nausea. He had previously been diagnosed with hiatal hernia as well as fatty liver.The patient denies any black or bloody stools. He reports having had intermittent sharp pain. This did not radiate. Allergies: Coded Allergies: ESOMEPRAZOLE (Verified Allergy, Severe, 06/11/17) IODINATED CONTRAST- ORAL AND IV DYE (Verified Allergy, Intermediate, Rash , 06/11/17) PENICILLINS (Verified Allergy, Unknown, 06/11/17) Patient History Past Medical History: see triage record Reviewed Nursing Documentation: PMH: Agreed; PSxH: Agreed Review of Systems All Other Systems: negative except mentioned in HPI Physical Exam Vital Signs Date Time Temp Pulse Resp B/P (MAP) Pulse Ox O2 Delivery O2 Flow Rate FiO2 05/24/18 14:10 98.9 81 17 138/87 95 Room Air 99.0 Sp02 EP Interpretation: reviewed, normal General Appearance: normal inspection, well appearing, no apparent distress, alert, GCS 15, obese Head: atraumatic ENT: normal ENT inspection, hearing grossly normal, normal voice Neck: normal inspection, full range of motion, supple, no bony tend Respiratory: normal inspection, lungs clear, normal breath sounds, no respiratory distress, no retraction, no wheezing Cardiovascular #1: regular rate, rhythm, no edema Gastrointestinal: non tender, soft, no guarding, no hernia Genitourinary: no CVA tenderness Musculoskeletal: normal inspection, back normal, normal range of motion Neurologic: normal inspection, alert, oriented x3, responsive, surtass analyst III-XII nml as tested, speech normal Psychiatric: normal inspection, judgement/insight normal, mood/affect normal Skin: normal inspection, normal color, no rash Medical Decision Making Diagnostic Impression: Primary Impression: Gastritis ER Course Patient presented for abdominal pain. Differential diagnoses included diverticulitis, C. difficile colitis,ischemic bowel, appendicitis, perforated viscus, abdominal aortic aneurysm, inferior myocardial infarction, viral gastroenteritis. Patient has a benign exam and does not appear to require any laboratory testing at this time. Patient was noted to have recent urinary infection. Patient was given GI cocktail.Abdominal ultrasound no evidence of acute gallstones was noted to have fatty liver. The patient is advised dietary modification and alcohol cessation. The patient is given prescription for acid blockers. The patient is advised to follow up with primary care doctor in 2-3 days. Patient is advised to return if any worsening condition or if any changes in status that are concerning. This report is dictated with [employer] side stitcher software which may occasionally lead to discrepancies related to use of this software. Last Vital Signs Date Time Temp Pulse Resp B/P (MAP) Pulse Ox O2 Delivery O2 Flow Rate FiO2 05/24/18 14:18 99.0 81 17 138/87 95 Room Air 99.0 Status: improved Disposition: HOME, SELF-CARE Condition: Stable Scripts Famotidine (PEPCID AC) 20 Mg Tablet 20 MG PO DAILY, #20 TAB Prov: Steive Marrero MD 05/24/18 Dicyclomine Hcl* (DICYCLOMINE HCL*) 10 Mg Capsule 10 MG PO QID, #30 CAP Prov: Stevie Marrero MD 05/24/18 Referrals: NOT CHOSEN IPA/,REFERRING (PCP) Stevie Marrero MD May 24, 2018 14:34
[2018-05-24] MEDS ORDERED: DICYCLOMINE HCL10 MG PO (14:35)
[2018-05-24] MEDS ORDERED: Lidocaine 2% Visc 15ml soln ONE (14:36)
[2018-05-24] MEDS ORDERED: Dicyclomine HCl 10mg/5ml oral soln ONE (14:36)
[2018-05-24] MEDS ORDERED: Mylanta II UD 30ml ONE (14:36)
[2018-05-24] MEDS ORDERED: PEPCID AC20 M2 PO (15:40)
[2018-05-24 15:47] VITALS: BP 138/87
--- NOTE | 2018-05-25 06:46 | Diagnostic Imaging Report ---
EXAM: US Abdomen Complete. CLINICAL HISTORY: PAIN TECHNIQUE: Real-time ultrasound of the abdomen (complete) with image documentation. COMPARISON: No relevant prior studies available. FINDINGS: Liver: Diffusely increased hepatic parenchymal echogenicity is most consistent with fat infiltration. The liver is mildly enlarged measuring up to 19 cm in diameter. Hypoechoic region within the left hepatic lobe could represent focal fatty sparing or a hepatic cyst. Gallbladder: Unremarkable. No gallstones. No gallbladder wall thickening or pericholecystic fluid. Common bile duct: Unremarkable as visualized. No stones. No dilation. Pancreas: Not well visualized due to overlying bowel gas.. Kidneys: Unremarkable. No stones. No solid mass. No hydronephrosis. Spleen: Unremarkable. No splenomegaly. IMPRESSION: Hepatic steatosis. No evidence of cholelithiasis or biliary obstruction. No evidence of hydronephrosis.
== END 2018-05-24 15:49 | disposition home or self-care (01) ==
LOC: EMR 14:18
DX: K29.70 Gastritis, unspecified, without bleeding (principal)
CPT/HCPCS: 76700; 99284

== ENCOUNTER 2018-09-18 18:08 | Emergency (ER) | payer SELFPAY ==
[~2018-09-18] VITALS: Ht 175.3 cm; Wt 104.3 kg
[~2018-09-18 18:08] MED LIST changes: +DICYCLOMINE HCL10 MG PO; +PEPCID AC20 M2 PO
[2018-09-18 19:44] VITALS: BP 120/74
--- NOTE | 2018-09-18 19:48 | NUR ---
ED Nurse Note: PT CAME TO ED C/O OF BUMP IN MOUTH SINCE YESTERDAY 09/17/18. PER PT IT STARTED HURTING TODAY 02/03. BUMP IS PRESENT INSIDE LEFT SIDE OF MOUTH
[2018-09-18] MEDS ORDERED: DOXYCYCLINE MO100 MG ORAL (20:05)
[2018-09-18] MEDS ORDERED: LIDOCAINE VISC100 ML ORAL (20:05)
[2018-09-18] MEDS ORDERED: ACYCLOVIR800 MG ORAL (20:05)
[2018-09-18] MEDS ORDERED: Lidocaine 2% Visc 15ml soln ORAL ONE (20:15)
--- NOTE | 2018-09-18 20:15 | Emergency Room Report ---
History of Present Illness General Chief Complaint: General Complaint Source: Patient Present Illness HPI Patient is a 36-year-old male vision is a 33-year-old male presented after increased left-sided mouth lesion for approximately 3 days. Patient states this had become increasingly painful. He denies any recent trauma. He denies any prior history of herpes lesions. He denied any sore throat cough or lesions to his hand or feet. He denies sick contacts. He denies any recent oral sex. Allergies: Coded Allergies: ESOMEPRAZOLE (Verified Allergy, Severe, 06/11/17) IODINATED CONTRAST- ORAL AND IV DYE (Verified Allergy, Intermediate, Rash , 06/11/17) PENICILLINS (Verified Allergy, Unknown, 06/11/17) Patient History Reviewed Nursing Documentation: PMH: Agreed; PSxH: Agreed Nursing Documentation-PM Past Medical History: No Stated History Physical Exam Vital Signs Date Time Temp Pulse Resp B/P (MAP) Pulse Ox O2 Delivery O2 Flow Rate FiO2 09/18/18 18:20 98.2 77 16 121/73 97 09/18/18 19:44 Room Air 99 General Appearance: well appearing, no apparent distress Head: normocephalic, atraumatic ENT: hearing grossly normal, normal voice, other - upper lip vesicles, intraoral lesion left side 0.5 cm possible slight purulent drainage Neck: full range of motion, supple Respiratory: no respiratory distress, speaking full sentences Cardiovascular #1: normal inspection, normal peripheral pulses, regular rate, rhythm, no edema Gastrointestinal: normal inspection Musculoskeletal: normal inspection Neurologic: normal gait Psychiatric: mood/affect normal Skin: no rash Medical Decision Making Diagnostic Impression: Primary Impression: Mouth lesion Additional Impression: Herpes labialis ER Course Patient presented for mouth lesion. Differential diagnosis include was not limited to herpes lesion, abscess, hematoma, coagulopathy, among others. Patient has a benign exam and does not appear to require any further imaging or laboratory testing at this time. Patient does appear to have some evidence of vesicles to the left side upper lip. There is a small approximately 0.5cm lesion to the vehicle mucosa on the left side there may be some small amount of infection. Patient is given prescription for acyclovir as well as for antibiotics. Patient was noted to have some allergy to penicillin. Patient given prescription for doxycycline. Patient is advised to follow-up with his primary care physician for recheck in the next few days.Patient is advised to return if he had any worsening of symptoms. Last Vital Signs Date Time Temp Pulse Resp B/P (MAP) Pulse Ox O2 Delivery O2 Flow Rate FiO2 09/18/18 19:44 77 16 Room Air 99 09/18/18 19:44 98.2 120/74 97 Status: improved Disposition: HOME, SELF-CARE Condition: Stable Scripts Doxycycline Monohydrate* (DOXYCYCLINE MONOHYDRATE*) 100 Mg Capsule 100 MG ORAL Q12H, #14 CAP 0 Refills Prov: Stevie Marrero MD 09/18/18 Lidocaine HCl 2% Viscous (Lidocaine HCl 2% Viscous) 100 Ml Solution 15 ML ORAL QID, #60 ML Prov: Stevie Marrero MD 09/18/18 Acyclovir* (ZOVIRAX*) 800 Mg Tablet 800 MG ORAL FIVE TIMES A DAY, #35 TAB Prov: Stevie Marrero MD 09/18/18 Patient Instructions: Oral Ulcers Stevie Marrero MD Sep 18, 2018 20:15
[2018-09-18 20:20] VITALS: BP 120/71
--- NOTE | 2018-09-18 20:21 | NUR ---
ED Nurse Note: pt discharge instruction provided w/ prescription, pt education done via discussion and hand out, wristband removed, pt advised to follow up with pcp or return to ed if s/s worsen or new s/s develop, pt verbalized understanding and agrees with plan.
== END 2018-09-18 20:23 | disposition home or self-care (01) ==
LOC: EMR 19:00
DX: K13.70 Unspecified lesions of oral mucosa (principal); B00.1 Herpesviral vesicular dermatitis; Z88.0 Allergy status to penicillin; Z91.041 Radiographic dye allergy status
CPT/HCPCS: 99282

== ENCOUNTER 2018-10-27 21:47 | Emergency (ER) | payer MEDICAID ==
[~2018-10-27] VITALS: Ht 175.3 cm; Wt 104.3 kg
[~2018-10-27 21:47] MED LIST changes: +ACYCLOVIR800 MG ORAL; +LIDOCAINE VISC100 ML ORAL
--- NOTE | 2018-10-27 21:54 | NUR ---
ED Nurse Note: pt came to ed c/o pain and numbness on both hands due to use of vinyl gloves 2 weeks ago. per pt he thought itchiness and redness would go away but it did not. discomfort radiates to arms. redness present on right hand between fingers. per pt he took bendadryl to alleveiate allergic reaction, was unsuccessful.
[2018-10-27 21:59] VITALS: BP 130/87
[2018-10-27] MEDS ORDERED: DiphenhydrAMINE 50mg/ml Inj IM ONE (22:15)
[2018-10-27] MEDS ORDERED: PREDNISONE20 MG ORAL (22:16)
[2018-10-27] MEDS ORDERED: RANITIDINE HCL150 MG ORAL (22:16)
[2018-10-27] MEDS ORDERED: DIPHENHYDRAMINE25 M1 ORAL (22:16)
[2018-10-27 22:22] VITALS: BP 130/87
--- NOTE | 2018-10-27 22:22 | NUR ---
ER DISCHARGE NOTE: Patient is cleared to be discharged per ERMD, pt is aox4, on room air, with stable vital signs. pt was given dc and prescription instructions, pt was able to verbalize understanding, pt id band removed. pt is able to ambulate with steady gait. pt took all belongings.
--- NOTE | 2018-10-27 23:08 | Emergency Room Report ---
History of Present Illness General Chief Complaint: Skin Rash/Abscess Source: Patient Present Illness HPI 33-year-old male presents ED for evaluation. patient states he's having an allergic reaction to his hands. States that he inadvertently wore vinyl gloves today; states that he has an allergy to vinyl. Notes rash and itchiness to his hands. Denies any tongue swelling or throat swelling. Denies any shortness of breath. No other aggravating relieving factors. Denies any other associated symptoms Allergies: Coded Allergies: ESOMEPRAZOLE (Verified Allergy, Severe, 06/11/17) IODINATED CONTRAST- ORAL AND IV DYE (Verified Allergy, Intermediate, Rash , 06/11/17) PENICILLINS (Verified Allergy, Unknown, 06/11/17) Patient History Past Medical History: none Past Surgical History: none Pertinent Family History: none Social History: Denies: smoking, alcohol use, drug use Immunizations: UTD Reviewed Nursing Documentation: PMH: Agreed; PSxH: Agreed Nursing Documentation-PMH Past Medical History: No History, Except For Review of Systems All Other Systems: negative except mentioned in HPI Physical Exam Vital Signs Date Time Temp Pulse Resp B/P (MAP) Pulse Ox O2 Delivery O2 Flow Rate FiO2 10/27/18 21:51 98.1 76 18 130/87 98 Room Air Sp02 EP Interpretation: reviewed, normal General Appearance: no apparent distress, alert, GCS 15, non-toxic Head: normocephalic Eyes: bilateral eye normal inspection, bilateral eye PERRL ENT: normal ENT inspection Neck: normal inspection Respiratory: normal inspection Cardiovascular #1: normal inspection Gastrointestinal: normal inspection Rectal: deferred Genitourinary: no CVA tenderness Musculoskeletal: back normal, gait/station normal, normal range of motion, non- tender Neurologic: alert, oriented x3, responsive, motor strength/tone normal, sensory intact, speech normal Psychiatric: normal inspection Skin: rash - urticarial rash to hands Lymphatic: normal inspection Medical Decision Making Diagnostic Impression: Primary Impression: Allergic reaction Qualified Codes: T78.40XA - Allergy, unspecified, initial encounter ER Course Hospital Course 33 yo F presents with rash to hands after wearing vinyl gloves Differential diagnoses include: allergic reaction, anaphlyaxis, dermatitis Clinical course 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 After initial history, physical exam reveals male in no acute distress. On exam there appears to be an urticarial rash localized today and bilaterally. Itching. Nonerythematous base. Lungs clear. No tongue swelling or throat swelling. No signs of anaphylaxis. I ordered Benadryl, prednisone here. Discussed findings with patient. Safe for discharge close outpatient follow- up. We'll provide referrals i. I feel this is a highly complex case requiring extensive working including EKG/Rhythm strip, Xray/CT/US, Blood/urine lab work, repeat exams while in ED, and administration of strong opiates/narcotics for pain control, admission to hospital or close patient follow up. Diagnosis - allergic reaction Stable and discharged to home with prescriptions for Zantac, prednisone, Benadryl. Followup with PMD. Return to ED if symptoms recur or worsen Last Vital Signs Date Time Temp Pulse Resp B/P (MAP) Pulse Ox O2 Delivery O2 Flow Rate FiO2 10/27/18 22:22 98.1 76 18 130/87 98 Room Air Status: improved Disposition: HOME, SELF-CARE Condition: Stable Scripts Ranitidine Hcl* (ZANTAC*) 150 Mg Tablet 150 MG ORAL TWICE A DAY, #30 TAB Prov: Arslan Pennington MD 10/27/18 Diphenhydramine Hcl* (DIPHENHYDRAMINE HCL*) 25 Mg Capsule 25 MG ORAL Q6H PRN for Itching for 5 Days, #30 CAP 0 Refills Prov: Arslan Pennington MD 10/27/18 Prednisone* (PREDNISONE*) 20 Mg Tablet 40 MG ORAL DAILY, #10 TAB Prov: Arslan Pennington MD 10/27/18 Referrals: NOT CHOSEN IPA/,REFERRING (PCP) [facility] Patient Instructions: Valentina, [id number] Arslan Pennington MD Oct 27, 2018 23:08
== END 2018-10-27 22:22 | disposition home or self-care (01) ==
LOC: EMR 22:03
DX: T78.40XA Allergy, unspecified, initial encounter (principal); X58.XXXA Exposure to other specified factors, initial encounter; R21 Rash and other nonspecific skin eruption; Z88.0 Allergy status to penicillin; Z88.8 Allergy status to other drugs, medicaments and biological substances; Z91.041 Radiographic dye allergy status
CPT/HCPCS: 96372; 99283; J1200; J7512

== ENCOUNTER 2018-12-09 14:58 | Emergency (ER) | payer MEDICAID ==
[~2018-12-09] VITALS: Ht 175.3 cm; Wt 104.3 kg
[~2018-12-09 14:58] MED LIST changes: +DIPHENHYDRAMINE25 M1 ORAL
[2018-12-09 15:05] VITALS: BP 154/110
--- NOTE | 2018-12-09 15:10 | NUR ---
ED Nurse Note: Patient walked into ED due to pain on right index finger. per pt, patient had little laceration on that finger, was seen by other doctor and got treated 3 weeks ago. now patient reports swelling and discoloration noted on the tip of the right index finger. patient is alert awake x4 ambulaotry.
--- NOTE | 2018-12-09 15:10 | Emergency Room Report ---
History of Present Illness General Chief Complaint: Laceration Source: Medical Record Present Illness HPI 33-year-old male presents to the emergency department complaining of 6 out of 10 severity pain to the right index finger progressive 4 weeks. Patient reports that he was initially hospitalized at [facility] for infection of the right index finger which required an incision to be made and had to receive IV antibiotics over the course of 3 days. Patient states that initially his symptoms were resolving however he began having some pain and swelling and noticed that he was having an open wound opening in an area that was not in size. Patient denies fevers or chills he denies streaking up the arm. paresthesias or inability to flex the finger joints of the affected joint. pt. denies new trauma or fall, He cannot remember what abx he was given however he states he finished his course several weeks ago. denies hx of immunosuppression. Allergies: Coded Allergies: ESOMEPRAZOLE (Verified Allergy, Severe, 06/11/17) IODINATED CONTRAST- ORAL AND IV DYE (Verified Allergy, Intermediate, Rash , 06/11/17) PENICILLINS (Verified Allergy, Unknown, 06/11/17) Patient History Past Medical History: see triage record Past Surgical History: none Pertinent Family History: none Immunizations: UTD Reviewed Nursing Documentation: PMH: Agreed; PSxH: Agreed Nursing Documentation-PMH Past Medical History: No History, Except For Hx Gastrointestinal Problems: No - hiatal hernia Hx Neurological Problems: No - anxiety Review of Systems All Other Systems: negative except mentioned in HPI Physical Exam Vital Signs Date Time Temp Pulse Resp B/P (MAP) Pulse Ox O2 Delivery O2 Flow Rate FiO2 12/09/18 15:02 97.9 77 18 154/110 96 Room Air Sp02 EP Interpretation: reviewed, normal General Appearance: no apparent distress, alert, GCS 15, non-toxic Head: normocephalic, atraumatic Eyes: bilateral eye normal inspection, bilateral eye PERRL ENT: hearing grossly normal, normal voice Neck: full range of motion Respiratory: chest non-tender, lungs clear, normal breath sounds, speaking full sentences Cardiovascular #1: regular rate, rhythm, normal capillary refill Musculoskeletal: gait/station normal, normal range of motion, non-tender, swelling - distal right index finger, tender - to the distal right index finger. FROM of DIP joint Neurologic: alert, oriented x3, responsive, motor strength/tone normal, sensory intact, speech normal, grossly normal Psychiatric: judgement/insight normal Skin: normal color, no rash, warm/dry, well hydrated, other - lifting of the nail of the right index finger. , laceration - scabbed 1cm laceration of the distal right index finger just under the nail. Lymphatic: no adenopathy Medical Decision Making PA Attestation Dr. peck is my supervising Physician whom patient management has been discussed with. Diagnostic Impression: Primary Impression: Osteomyelitis of finger of right hand ER Course 33-year-old male presents to the emergency department complaining of 6 out of 10 severity pain to the right index finger progressive 4 weeks. Patient reports that he was initially hospitalized at [facility] for infection of the right index finger which required an incision to be made and had to receive IV antibiotics over the course of 3 days. Patient states that initially his symptoms were resolving however he began having some pain and swelling and noticed that he was having an open wound opening in an area that was not in size. Patient denies fevers or chills he denies streaking up the arm. paresthesias or inability to flex the finger joints of the affected joint. pt. denies new trauma or fall, He cannot remember what abx he was given however he states he finished his course several weeks ago. denies hx of immunosuppression. Ddx considered but are not limited to Cellulitis, Felon, Osteomyelitis just to name a few. Vital signs: are WNL, pt. is afebrile H&PE are most consistent with chronic developing osteomyelitis of the right index finger. ORDERS: none required at this time, the diagnosis is clinical ED INTERVENTIONS: --Tylenol # 3 PO --Finger Splint applied to the right index by thermal technician. Pt. remains neurovascularly intact. --This pt. will require terminal block assembler abx treatment with infectious disease. d/w pt. that he will be started on oral abx here but close urgent I & D follow up is vital. pt. is given resource information for 3 I & D providers. DISCHARGE: At this time pt. is stable for d/c to home. Will provide printed patient care instructions, and any necessary prescriptions. Care plan and follow up instructions have been discussed with the patient prior to discharge. Other X-Ray Diagnostic Results Other X-Ray Diagnostic Results : X-Ray ordered: Right Fingers # of Views/Limited Vs Complete: 3 View Indication: Pain EP Interpretation: Yes PA Xray: Interpretation reviewed, by supervising MD, and agrees with findings. Interpretation: no dislocation, no soft tissue swelling, no fractures, other - bony destruction of the finger tuft to right index finger Impression: Other - abnormal: changes suspicious for osteomyelitis- chronic in nature- non acute Electronically Signed by: Sridevi Peng PA-C Last Vital Signs Date Time Temp Pulse Resp B/P (MAP) Pulse Ox O2 Delivery O2 Flow Rate FiO2 12/09/18 15:02 97.9 77 18 154/110 96 Room Air Status: improved Disposition: HOME, SELF-CARE Condition: Stable Scripts Trimethoprim/Sulfamethoxazole 160/800* (BACTRIM DS TABLET*) 1 Each Tablet 1 TAB ORAL TWICE A DAY for 7 Days, #14 TAB Prov: Sridevi Peng 12/09/18 Clindamycin Hcl (CLINDAMYCIN HCL) 300 Mg Capsule 300 MG ORAL FOUR TIMES A DAY for 7 Days, #28 CAP Prov: Sridevi Peng 12/09/18 Acetaminophen With Codeine (T#3) (TYLENOL #3 TAB*) Y Tab 1 TAB ORAL Q6H PRN for For Pain, #8 TAB Prov: Sridevi Peng 12/09/18 Referrals: Ari Zambrano MD, Isam M.D. Swaminathan, Shakuntala MD Patient Instructions: Cellulitis, [id number] Additional Instructions: Take medications as directed. Follow up with an ORTHOPEDIC and INFECTIOUS DISEASES SPECIALIST within 3 days, even if your symptoms have resolved. Your condition will Require close follow up with a hand Specialist. Please see attached Orthopedic and Infectious Disease referral if you do not have a PCP. --Please review list of primary care clinics, if you do not already have a primary care provider who can give you an Orthopedic Referral. Return sooner to ED if new symptoms occur, or current symptoms become worse. - Please note that this Emergency Department Report was dictated using [employer] it engineer technology software, occasionally this can lead to erroneous entry secondary to interpretation by the dictation equipment. Sridevi Peng Dec 09, 2018 15:10
[2018-12-09] MEDS ORDERED: Tylenol #3 tab (300mg/30mg) ORAL ONE (15:45)
--- NOTE | 2018-12-09 15:56 | NUR ---
ED Nurse Note: xray taken
[2018-12-09] MEDS ORDERED: ACETAMINOPHEN-1 EAC1 ORAL (16:18)
[2018-12-09] MEDS ORDERED: CLINDAMYCIN HC300 MG ORAL (16:18)
[2018-12-09] MEDS ORDERED: BACTRIM DS TAB1 EAC1 ORAL (16:18)
--- NOTE | 2018-12-09 16:33 | NUR ---
ED Nurse Note: finger splint applied
--- NOTE | 2018-12-09 16:34 | Diagnostic Imaging Report ---
Indication: Right second digit pain and infection Technique: None Comparison: none Findings: There is equivocal slight soft tissue irregularity of the distal second digit. There is also some osseous irregularity of the terminal tuft which is best appreciated on the oblique view, as well as some rarefaction which is best appreciated on the AP view. No radiopaque foreign body. No acute fractures. No dislocations. The other visualized images demonstrate no definite bony abnormality. Small calcific density projects dorsomedial to the head of the third proximal phalanx Impression: Irregularity of the terminal tuft of the second digit, suspicious for osteomyelitis given stated clinical history of infection Findings discussed by phone with Dr. Pennington in the emergency room at the time of interpretation
--- NOTE | 2018-12-09 16:50 | NUR ---
ER DISCHARGE NOTE: Patient is cleared to be discharged per SHAHAB VASQUEZ, pt is aox4, on room air, with stable vital signs. pt was given dc and prescription instructions, pt was able to verbalize understanding, patient verbalized the need to take antibiotics as prescribed and follow up with hand specialist nolberto. pt id band removed without complications. pt is able to ambulate with steady gait. pt took all belongings.
[2018-12-09 16:51] VITALS: BP 148/98
== END 2018-12-09 16:50 | disposition home or self-care (01) ==
LOC: EMR 15:35
DX: M86.9 Osteomyelitis, unspecified (principal); F41.9 Anxiety disorder, unspecified; Z88.8 Allergy status to other drugs, medicaments and biological substances; Z88.0 Allergy status to penicillin; S61.210A Laceration without foreign body of right index finger without damage to nail, initial encounter; X58.XXXA Exposure to other specified factors, initial encounter; Y92.9 Unspecified place or not applicable
CPT/HCPCS: 29130; 99283

== ENCOUNTER 2019-02-27 18:27 | Emergency (ER) | payer MEDICAID, OTHER ==
[~2019-02-27] VITALS: Ht 182.9 cm; Wt 104.3 kg
[~2019-02-27 18:27] MED LIST changes: +CLINDAMYCIN HC300 MG ORAL
--- NOTE | 2019-02-27 18:41 | NUR ---
ED Nurse Note: Pt started having L sided chest pain, sharp pain that radiates to L arm since 0700 this morning. Pain 7/. Also c/o dizziness and JOAQUIN. AOx4, VSS black. Will cont to monitor.
[2019-02-27 19:02] VITALS: BP_SYST 116; BP_SYST 119; BP_SYST 121; BP_DIAS 78; BP_DIAS 80; BP_DIAS 83
[2019-02-27 19:03] VITALS: BP 121/78
[2019-02-27 19:08] VITALS: BP 119/83
--- NOTE | 2019-02-27 19:08 | NUR ---
ED Nurse Note: patient laying in bed with nad. vss. awaiting imaging
[2019-02-27] MEDS ORDERED: ALBUTEROL SULF8.5 GM INH (19:28)
[2019-02-27] MEDS ORDERED: Albuterol/Ipratropium 3ml neb HHN ONE (19:30)
[2019-02-27 19:50] VITALS: BP 119/83
--- NOTE | 2019-02-27 19:57 | Emergency Room Report ---
History of Present Illness General Chief Complaint: Chest Pain Source: Patient, Medical Record Present Illness HPI Patient is a 33-year-old male who presented after increased chest discomfort. Patient reports having some tightness to his chest. He had multiple visits in the past for similar symptoms. He denies any cough. He had not been having any leg pain or swelling. He reports having prior history of panic attacks. Allergies: Coded Allergies: ESOMEPRAZOLE (Verified Allergy, Severe, 06/11/17) IODINATED CONTRAST- ORAL AND IV DYE (Verified Allergy, Intermediate, Rash , 06/11/17) PENICILLINS (Verified Allergy, Unknown, 06/11/17) Patient History Past Medical History: see triage record Reviewed Nursing Documentation: PMH: Agreed; PSxH: Agreed Nursing Documentation-PMH Past Medical History: No History, Except For Hx Gastrointestinal Problems: No - hiatal hernia Hx Neurological Problems: No - anxiety Review of Systems All Other Systems: negative except mentioned in HPI Physical Exam Vital Signs Date Time Temp Pulse Resp B/P (MAP) Pulse Ox O2 Delivery O2 Flow Rate FiO2 02/27/19 18:30 97.9 85 18 139/73 (95) 99 Room Air 02/27/19 19:37 21 General Appearance: well appearing, no apparent distress, alert, GCS 15 Head: normocephalic, atraumatic ENT: hearing grossly normal, normal voice Neck: full range of motion, supple Respiratory: no respiratory distress, speaking full sentences, wheezing - faint wheeze, good air movement Cardiovascular #1: normal inspection, normal peripheral pulses, regular rate, rhythm Gastrointestinal: normal inspection Musculoskeletal: normal inspection, no calf tenderness Neurologic: normal inspection, alert, oriented x3, responsive, dust operator III-XII nml as tested, normal gait Psychiatric: mood/affect normal Skin: no rash Medical Decision Making Diagnostic Impression: Primary Impression: Anxiety ER Course Patient presented for Chest discomfort. Differential diagnosis include is not limited to myocardial infarction, pneumonia, anxiety among others. Patient was noted to have multiple previous visits with similar symptoms. He had prior history of anxiety. Patient was given breathing treatment. Chest x-ray 1 view read by radiology showed no acute findings. Patient is given breathing treatment. He was given prescription for inhaler. He was advised to return if he had any worsening condition or other concerns. He does not appear to have any ekg changes of acute coronary syndrome at this time. Last Vital Signs Date Time Temp Pulse Resp B/P (MAP) Pulse Ox O2 Delivery O2 Flow Rate FiO2 02/27/19 19:49 76 18 99 Room Air 21 02/27/19 19:08 97.9 119/83 Status: improved Disposition: HOME, SELF-CARE Condition: Stable Scripts Albuterol Sulfate* (ALBUTEROL SULFATE MDI*) 8.5 Gm Hfa.aer.ad 2 PUFF INH Q4H PRN for cough/wheezing, #1 EA 0 Refills Prov: Stevie Marrero MD 02/27/19 Patient Instructions: Nonspecific Chest Pain Stevie Marrero MD Feb 27, 2019 19:57
--- NOTE | 2019-02-28 13:59 | Diagnostic Imaging Report ---
Indication: Chest pain Comparison: 03/23/2018 A single view chest radiograph was obtained. Findings: Cardiomediastinal appearance is within normal limits for age. The lungs are clear. Pulmonary vascularity is appropriate. The diaphragmatic contour is smooth and costophrenic angles are sharp. No pleural effusions are identified. The bones are unremarkable. Impression: No acute findings
== END 2019-02-27 19:50 | disposition home or self-care (01) ==
LOC: EMR 18:45
DX: F41.9 Anxiety disorder, unspecified (principal); Z88.0 Allergy status to penicillin; Z88.8 Allergy status to other drugs, medicaments and biological substances
CPT/HCPCS: 71045; 93005; 94640; 94664; 99284; J7620

== ENCOUNTER 2019-04-05 14:18 | Emergency (ER) | payer OTHER ==
[~2019-04-05] VITALS: Ht 182.9 cm; Wt 113.4 kg
[2019-04-05] MEDS ORDERED: NAPROXEN250 MG ORAL (14:36)
[2019-04-05] MEDS ORDERED: ROBAXIN-750750 MG PO (14:36)
[2019-04-05] MEDS ORDERED: LIDODERM700 M1 TOPIC (14:36)
--- NOTE | 2019-04-05 14:37 | Emergency Room Report ---
History of Present Illness General Chief Complaint: Back Pain-No Injury Source: Patient Present Illness HPI 34-year-old male presents with right mid lateral back pain started at 2 PM, aggravated with movement alleviated with rest, patient feels an ache severity is moderate, no chest pain no shortness of breath, no abdominal pain patient presents for evaluation. He states the pain came on gradually. Allergies: Coded Allergies: ESOMEPRAZOLE (Verified Allergy, Severe, 06/11/17) IODINATED CONTRAST- ORAL AND IV DYE (Verified Allergy, Intermediate, Rash , 06/11/17) PENICILLINS (Verified Allergy, Unknown, 06/11/17) Patient History Past Medical History: see triage record Reviewed Nursing Documentation: PMH: Agreed; PSxH: Agreed Nursing Documentation-PMH Past Medical History: No Stated History Hx Gastrointestinal Problems: No - hiatal hernia Hx Neurological Problems: No - anxiety Review of Systems All Other Systems: negative except mentioned in HPI Physical Exam Vital Signs Date Time Temp Pulse Resp B/P (MAP) Pulse Ox O2 Delivery O2 Flow Rate FiO2 04/05/19 14:22 97.7 74 18 155/95 (115) 97 Room Air Sp02 EP Interpretation: reviewed, normal General Appearance: well appearing, no apparent distress, alert Head: normocephalic, atraumatic Eyes: bilateral eye PERRL, bilateral eye EOMI ENT: uvula midline, moist mucus membranes Neck: supple, thyroid normal, supple/symm/no masses Respiratory: lungs clear, no respiratory distress, no retraction, no accessory muscle use Cardiovascular #1: normal peripheral pulses, regular rate, rhythm, no edema, no gallop, no murmur Gastrointestinal: non tender, soft, no guarding, no rebound Musculoskeletal: normal inspection, other - Right latissimus dorsi lateral aspect tender to palpation, reproduces his exact pain Neurologic: alert, oriented x3 Psychiatric: mood/affect normal Skin: no rash, warm/dry Medical Decision Making Diagnostic Impression: Primary Impression: Back pain Qualified Codes: M54.6 - Pain in thoracic spine ER Course Patient with musculoskeletal back pain of the right latissimus dorsi, came on gradually achy in nature. Patient had no midline tenderness, no evidence of step-offs, no bowel bladder incontinence/retention. Will provide patient with pain medication, chest x-ray is negative for acute processes Disposition home with return precautions Chest X-Ray Diagnostic Results Chest X-Ray Diagnostic Results : Chest X-Ray Ordered: Yes # of Views/Limited/Complete: 1 View Indication: Other - back pain EP Interpretation: Yes Interpretation: no consolidation, no effusion, no pneumothorax, no acute cardiopulmonary disease Impression: No acute disease Electronically Signed by: Steve Monaco MD Last Vital Signs Date Time Temp Pulse Resp B/P (MAP) Pulse Ox O2 Delivery O2 Flow Rate FiO2 04/05/19 14:22 97.7 74 18 155/95 (115) 97 Room Air Disposition: HOME, SELF-CARE Condition: Stable Scripts Naproxen* (NAPROSYN*) 250 Mg Tablet 250 MG ORAL BID PRN for For Pain, #20 TAB 0 Refills Prov: Steve Monaoc MD 04/05/19 Methocarbamol* (ROBAXIN-750*) 750 Mg Tablet 750 MG PO QID, #28 TAB 0 Refills Prov: Steve Monaco MD 04/05/19 Lidocaine (Lidoderm) 1 Each Adh..patch 1 PATCH TOPIC Q12HR, #14 PATCH 0 Refills Patch(es) may remain in place for up to 12 hours in any 24-hour period. Prov: Steve Monaco MD 04/05/19 Referrals: [facility] Patient Instructions: Back Pain, Adult, Muscle Strain, [id number] Additional Instructions: The patient was provided with discharge instructions, notified to follow-up with a primary care doctor and or specialist in the next 24-48 hours, and to return to the ED if they have worsening of their symptoms. Please note that this report is being documented using [employer] technology. This can lead to erroneous entry secondary to incorrect interpretation by the dictating instrument. Steve Monaco MD Apr 05, 2019 14:37
[2019-04-05] MEDS ORDERED: Dexamethasone 4mg/ml vial ORAL ONE (14:45)
[2019-04-05] MEDS ORDERED: Ketorolac 60mg Inj IM ONE (14:45)
[2019-04-05] MEDS ORDERED: Acetaminophen 500mg (ES) tab ORAL ONE (14:45)
[2019-04-05 15:15] VITALS: BP 141/89
--- NOTE | 2019-04-05 15:21 | Diagnostic Imaging Report ---
EXAM: XR Chest, 1 View CLINICAL HISTORY: PAIN TECHNIQUE: Frontal view of the chest. COMPARISON: No relevant prior studies available. FINDINGS: Lungs: No consolidation. Pleural space: Unremarkable. No pneumothorax. Heart: Unremarkable. No cardiomegaly. Mediastinum: Unremarkable. Bones/joints: No acute fracture. IMPRESSION: No acute cardiopulmonary disease.
== END 2019-04-05 15:15 | disposition home or self-care (01) ==
LOC: EMR 14:35
DX: M54.6 Pain in thoracic spine (principal); F41.9 Anxiety disorder, unspecified; Z88.8 Allergy status to other drugs, medicaments and biological substances; Z88.0 Allergy status to penicillin
CPT/HCPCS: 71045; 96372; 99283; J1100

== ENCOUNTER 2019-05-30 07:09 | Emergency (ER) | payer OTHER ==
[~2019-05-30] VITALS: Ht 175.3 cm; Wt 104.3 kg
[2019-05-30 07:08] VITALS: BP 131/89
[~2019-05-30 07:09] MED LIST changes: +NAPROXEN250 MG ORAL
--- NOTE | 2019-05-30 07:15 | NUR ---
ED Nurse Note: Patient brought in by ambulance RA 70 from home c/o nausea and vomiting, sorethroat since this morning. patient is alert awake x4 ambulatory, breathing unlabored and even, speaking in full sentences. patient placed on a awake overnight monitor.
[2019-05-30] MEDS ORDERED: Dexamethasone 4mg/ml vial IVP ONE (07:30)
[2019-05-30] MEDS ORDERED: Acetaminophen 500mg (ES) tab ORAL ONE (07:30)
[2019-05-30] MEDS ORDERED: Ketorolac 60mg Inj IM ONE (07:30)
--- NOTE | 2019-05-30 07:31 | Emergency Room Report ---
History of Present Illness General Chief Complaint: Nausea Source: Patient Present Illness HPI 34-year-old male presents with cough, sore throat x1 day, no fever chills chest pain shortness of breath, he states his throat feels achy mild severity worsened with eating, no alleviating factors patient is brought in for evaluation. Allergies: Coded Allergies: ESOMEPRAZOLE (Verified Allergy, Severe, 06/11/17) IODINATED CONTRAST MEDIA (Verified Allergy, Intermediate, Rash, 06/11/17) IODINE (Unverified Allergy, Unknown, 05/30/19) PENICILLINS (Verified Allergy, Unknown, 06/11/17) Patient History Past Medical History: see triage record Social History: Reports: alcohol use Reviewed Nursing Documentation: PMH: Agreed; PSxH: Agreed Nursing Documentation-PMH Past Medical History: No History, Except For Hx Gastrointestinal Problems: No - hiatal hernia Hx Neurological Problems: No - anxiety Review of Systems All Other Systems: negative except mentioned in HPI Physical Exam Vital Signs Date Time Temp Pulse Resp B/P (MAP) Pulse Ox O2 Delivery O2 Flow Rate FiO2 05/30/19 07:08 97.5 92 18 131/89 (103) 98 Room Air General Appearance: well appearing, no apparent distress Head: normocephalic, atraumatic Eyes: bilateral eye PERRL, bilateral eye EOMI ENT: hearing grossly normal, normal voice, moist mucus membranes, pharyngeal erythema, other - No exudates, no hot potato voice, tender adenopathy Neck: full range of motion, supple Respiratory: normal breath sounds, no respiratory distress, no accessory muscle use, speaking full sentences Cardiovascular #1: regular rate, rhythm Neurologic: alert, normal gait Psychiatric: mood/affect normal Skin: no rash Medical Decision Making Diagnostic Impression: Primary Impression: Pharyngitis Qualified Codes: J02.9 - Acute pharyngitis, unspecified ER Course 34-year-old male presents most likely with a pharyngitis, no red flags noted, no peritonsillar abscess, no evidence of RPA, no hot potato voice, patient can extend his neck fully disposition home with return precautions and symptomatic control Last Vital Signs Date Time Temp Pulse Resp B/P (MAP) Pulse Ox O2 Delivery O2 Flow Rate FiO2 05/30/19 07:08 97.5 92 18 131/89 (103) 98 Room Air Disposition: HOME, SELF-CARE Condition: Stable Referrals: [facility] Patient Instructions: Pharyngitis, [id number] Additional Instructions: The patient was provided with discharge instructions, notified to follow-up with a primary care doctor and or specialist in the next 24-48 hours, and to return to the ED if they have worsening of their symptoms. Please note that this report is being documented using [employer] technology. This can lead to erroneous entry secondary to incorrect interpretation by the dictating instrument. PLEASE FOLLOW-UP WITH ENT DOCTOR Steve Monaco MD May 30, 2019 07:31
[2019-05-30 07:48] VITALS: BP 117/68
--- NOTE | 2019-05-30 07:49 | NUR ---
ER DISCHARGE NOTE: Patient is cleared to be discharged per ERMBenson DUCKWORTH, pt is aox4, on room air, with stable vital signs. pt was given dc instructions, pt was able to verbalize understanding, pt id band removed without complications. pt is able to ambulate with steady gait. pt took all belongings.
== END 2019-05-30 07:50 | disposition home or self-care (01) ==
LOC: EDBD 07:09 → EMR 07:20
DX: J02.9 Acute pharyngitis, unspecified (principal); F41.9 Anxiety disorder, unspecified; Z88.0 Allergy status to penicillin; Z91.041 Radiographic dye allergy status; Z88.8 Allergy status to other drugs, medicaments and biological substances
CPT/HCPCS: 96372; 96374; J1100; Z7502; 99284

== ENCOUNTER 2019-07-05 18:39 | Emergency (ER) | payer OTHER ==
[~2019-07-05] VITALS: Ht 175.3 cm; Wt 104.3 kg
--- NOTE | 2019-07-05 19:01 | NUR ---
ED Nurse Note: pt presents to ED c/o N/V since 0200 yesterday. pt reports throwing up mostly phlegm and fluids 5 times since yesterday. pt also reports feeling SOB and sore throat. 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 pt able to speak full sentences without difficulty. Respirations are at 17, lungs sound clear bilaterally
[2019-07-05 19:03] VITALS: BP 142/95
[2019-07-05 19:46] LABS: BASOPHILS % (AUTO) 0.8 % (0.0-2.0); HEMATOCRIT 43.5 % (42.0-52.0); HEMOGLOBIN 14.4 G/DL (14.2-18.0); LYMPHOCYTES % (AUTO) 26.6 % (20.0-45.0); MEAN CORPUSCULAR VOLUME 82 FL (80-99); MONOCYTES % (AUTO) 8.5 % (1.0-10.0); NEUTROPHILS % (AUTO) 62.2 % (45.0-75.0); PLATELET COUNT 299 K/UL (150-450); RED BLOOD COUNT 5.32 M/UL (4.70-6.10); RED CELL DISTRIBUTION WIDTH 11.7 % (11.6-14.8); WHITE BLOOD COUNT 10.5 K/UL (4.8-10.8)
[2019-07-05 20:00] LABS: ANION GAP 7 mmol/L (5-15); BLOOD UREA NITROGEN 10 mg/dL (7-18); CARBON DIOXIDE 30 MMOL/L (21-32); CHLORIDE 107 MMOL/L (98-107); POTASSIUM 3.7 MMOL/L (3.5-5.1); SODIUM 144 MMOL/L (136-145)
[2019-07-05 20:04] LABS: ALANINE AMINOTRANSFERASE 43 U/L (12-78); ALBUMIN 3.9 G/DL (3.4-5.0); ALBUMIN/GLOBULIN RATIO 1.1 (1.0-2.7); ALKALINE PHOSPHATASE 66 U/L (46-116); ASPARTATE AMINO TRANSFERASE 23 U/L (15-37); BILIRUBIN,TOTAL 0.3 MG/DL (0.2-1.0)
[2019-07-05] MEDS ORDERED: Metoclopramide 10mg/2ml Inj IVP ONE (20:30)
[2019-07-05] MEDS ORDERED: REGLAN10 MG ORAL (20:54)
[2019-07-05 21:00] VITALS: BP 145/92
--- NOTE | 2019-07-05 21:00 | NUR ---
ER DISCHARGE NOTE: Patient is cleared to be discharged per ERMD, pt is aox4, on room air, with stable vital signs. pt was given dc and prescription instructions, pt was able to verbalize understanding, pt id band and iv site removed without complications. pt is able to ambulate with steady gait. pt took all belongings.
--- NOTE | 2019-07-05 21:16 | Emergency Room Report ---
History of Present Illness General Chief Complaint: Nausea, Vomiting, and Diarrhea Source: Patient Present Illness HPI 34-year-old male brought in by self complaining of nausea/vomiting (x4) and diarrhea (x5) starting at 2 AM this morning. No blood in vomit or stool. States has been feeling some SOB prior to vomiting episodes. States ate a burger today. Denies fever, chest pain, abdominal pain, or rash. Denies recent travel. Last EtOH use was 2 days ago. Allergies: Coded Allergies: ESOMEPRAZOLE (Verified Allergy, Severe, 06/11/17) IODINATED CONTRAST MEDIA (Verified Allergy, Intermediate, Rash, 06/11/17) IODINE (Unverified Allergy, Unknown, 05/30/19) PENICILLINS (Verified Allergy, Unknown, 06/11/17) Patient History Past Medical History: other - hiatal hernia, anxiety Past Surgical History: none Social History: Reports: alcohol use Nursing Documentation-[facility] Past Medical History: No History, Except For Hx Gastrointestinal Problems: No - hiatal hernia Hx Neurological Problems: No - anxiety Review of Systems All Other Systems: negative except mentioned in HPI Physical Exam Vital Signs Date Time Temp Pulse Resp B/P (MAP) Pulse Ox O2 Delivery O2 Flow Rate FiO2 07/05/19 18:51 98.4 106 17 142/95 (111) 96 Room Air Sp02 EP Interpretation: reviewed, normal ENT: moist mucus membranes Respiratory: lungs clear, normal breath sounds, speaking full sentences Cardiovascular #1: regular rate, rhythm, no edema Gastrointestinal: normal bowel sounds, non tender, soft, non-distended, no guarding, no rebound Musculoskeletal: gait/station normal Neurologic: alert, oriented x3, responsive, motor strength/tone normal, sensory intact, speech normal Medical Decision Making PA Attestation This patient was seen under the direct supervision of Dr. Pennington, who directed all aspects of care and diagnostic interpretation. Diagnostic Impression: Primary Impression: Nausea, vomiting, and diarrhea ER Course ED course HPI: 34-year-old male brought in by self complaining of nausea/vomiting (x4) and diarrhea (x5) starting at 2 AM this morning. No blood in vomit or stool. States has been feeling some SOB prior to vomiting episodes. States ate a burger today. Denies fever, chest pain, abdominal pain, or rash. Denies recent travel. Last EtOH use was 2 days ago. HPI & PE consistent with: Nausea/ vomiting, diarrhea Orders/ Interventions: CBC showed no evidence of systemic infection or severe anemia. CMP showed no evidence of electrolyte abnormalities, severe acidosis, alkalosis, renal failure , or liver disease. Patient medicated with Zofran 4 mg IVP and 1 L of normal saline. Had an episode of emesis. Patient given Reglan 10mg IVP. Patient passed oral fluid challenge, no vomiting. Patient feels improved. Lungs are CTAB, patient speaking in full sentences without respiratory distress. Abdomen soft, nontender. Patient is well-appearing, afebrile. Do not suspect acute abdomen. Disposition: Prescription for Reglan 10mg given. At this time pt. is stable for d/c to home. Will provide printed patient care instructions, and any necessary prescriptions. Care plan and follow up instructions have been discussed with the patient prior to discharge. Please note that this Emergency Department Report was dictated using [employer] technology software, occasionally this can lead to erroneous entry secondary to interpretation by the dictation equipment. Laboratory Tests Test 07/05/19 19:23 White Blood Count 10.5 K/UL (4.8-10.8) Red Blood Count 5.32 M/UL (4.70-6.10) Hemoglobin 14.4 G/DL (14.2-18.0) Hematocrit 43.5 % (42.0-52.0) Mean Corpuscular Volume 82 FL (80-99) Mean Corpuscular Hemoglobin 27.1 PG (27.0-31.0) Mean Corpuscular Hemoglobin Concent 33.1 G/DL (32.0-36.0) Red Cell Distribution Width 11.7 % (11.6-14.8) Platelet Count 299 K/UL (150-450) Mean Platelet Volume 7.3 FL (6.5-10.1) Neutrophils (%) (Auto) 62.2 % (45.0-75.0) Lymphocytes (%) (Auto) 26.6 % (20.0-45.0) Monocytes (%) (Auto) 8.5 % (1.0-10.0) Eosinophils (%) (Auto) 2.0 % (0.0-3.0) Basophils (%) (Auto) 0.8 % (0.0-2.0) Sodium Level 144 MMOL/L (136-145) Potassium Level 3.7 MMOL/L (3.5-5.1) Chloride Level 107 MMOL/L (98-107) Carbon Dioxide Level 30 MMOL/L (21-32) Anion Gap 7 mmol/L (5-15) Blood Urea Nitrogen 10 mg/dL (7-18) Creatinine 1.0 MG/DL (0.55-1.30) Estimate Glomerular Filtration Rate > 60 mL/min (>60) Glucose Level 125 MG/DL (74-106) H Calcium Level 9.0 MG/DL (8.5-10.1) Total Bilirubin 0.3 MG/DL (0.2-1.0) Aspartate Amino Transferase (AST) 23 U/L (15-37) Alanine Aminotransferase (ALT) 43 U/L (12-78) Alkaline Phosphatase 66 U/L (46-116) Total Protein 7.4 G/DL (6.4-8.2) Albumin 3.9 G/DL (3.4-5.0) Globulin 3.5 g/dL Albumin/Globulin Ratio 1.1 (1.0-2.7) Last Vital Signs Date Time Temp Pulse Resp B/P (MAP) Pulse Ox O2 Delivery O2 Flow Rate FiO2 07/05/19 19:03 98.4 17 142/95 96 Room Air 07/05/19 18:51 106 Disposition: HOME, SELF-CARE Condition: Improved Scripts Metoclopramide Hcl* (REGLAN*) 10 Mg Tablet 10 MG ORAL THREE TIMES A DAY, #12 TAB Prov: Avelino Pereira 07/05/19 Patient Instructions: Nausea and Vomiting, Adult, [id number] Additional Instructions: Follow-up with PCP in 2 days or return to ER if worsening symptoms, new symptoms or sudden change in condition. Avelino Pereira Jul 05, 2019 21:16
== END 2019-07-05 21:00 | disposition home or self-care (01) ==
LOC: EMR 19:08
DX: R11.2 Nausea with vomiting, unspecified (principal); R19.7 Diarrhea, unspecified; F41.9 Anxiety disorder, unspecified; Z88.0 Allergy status to penicillin; Z88.8 Allergy status to other drugs, medicaments and biological substances
CPT/HCPCS: 36415; 80053; 85025; 96361; 96374; 96375; J2405; J2765; Z7502; 99284; J7030

== ENCOUNTER 2019-08-18 18:29 | Emergency (ER) | payer OTHER ==
[~2019-08-18] VITALS: Ht 175.3 cm; Wt 104.3 kg
[~2019-08-18 18:29] MED LIST changes: +REGLAN10 MG ORAL
--- NOTE | 2019-08-18 18:53 | NUR ---
ED Nurse Note: Pt walked in from home with 8/10 pain on left ring finger. Per pt, he fell about a week ago. Pt's finger is red, swollen, and warm to touch. Respirations even and unlabored on room air. Vital signs stable as documented.
--- NOTE | 2019-08-18 19:18 | NUR ---
ED Nurse Note: Report given to LEIGH Gage. Pt in stable condition. Plan of care endorsed.
[2019-08-18 19:19] VITALS: BP 132/91
--- NOTE | 2019-08-18 19:21 | Emergency Room Report ---
History of Present Illness General Chief Complaint: Pain Source: Patient Present Illness HPI 34-year-old male with no significant past medical history here complaining of pain and swelling of her left ring finger x1 week. Patient reports that he fell and punctured his left finger unsure how it happened 1 week ago. Reports that he normally takes [place] and is requesting something stronger [place] is not strong enough. Obvious puncture wound with minimal infection noted however no signs of bony tenderness noted. Patient has full range of motion, no motor or sensory deficits noted. Denies all other injuries, chest pain, shortness of breath, palpitation, no other associated symptoms. Is up-to-date with tetanus shot Allergies: Coded Allergies: ESOMEPRAZOLE (Verified Allergy, Severe, 06/11/17) IODINATED CONTRAST MEDIA (Verified Allergy, Intermediate, Rash, 06/11/17) IODINE (Unverified Allergy, Unknown, 05/30/19) PENICILLINS (Verified Allergy, Unknown, 06/11/17) Patient History Past Medical History: see triage record Past Surgical History: unable to obtain Pertinent Family History: none Immunizations: UTD Reviewed Nursing Documentation: PMH: Agreed; PSxH: Agreed Nursing Documentation-PMH Past Medical History: No History, Except For Hx Gastrointestinal Problems: No - hiatal hernia Hx Neurological Problems: No - anxiety Review of Systems All Other Systems: negative except mentioned in HPI Physical Exam Vital Signs Date Time Temp Pulse Resp B/P (MAP) Pulse Ox O2 Delivery O2 Flow Rate FiO2 08/18/19 18:35 98.1 74 19 132/91 (105) 99 Room Air Sp02 EP Interpretation: reviewed, normal General Appearance: no apparent distress, alert, GCS 15, non-toxic Head: normocephalic, atraumatic Eyes: bilateral eye normal inspection, bilateral eye PERRL ENT: hearing grossly normal, normal pharynx, no angioedema, normal voice Neck: full range of motion, supple/symm/no masses Respiratory: chest non-tender, lungs clear, normal breath sounds, no rhonchi, no respiratory distress, no retraction, no wheezing, speaking full sentences Cardiovascular #1: regular rate, rhythm, no edema, no murmur, normal capillary refill Cardiovascular #2: 2+ radial (R), 2+ radial (L) Gastrointestinal: normal bowel sounds, non tender, soft, non-distended, no guarding, no rebound Rectal: deferred Genitourinary: no CVA tenderness Musculoskeletal: back normal, swelling - left ring finger with infected puncture wound Neurologic: alert, motor strength/tone normal, oriented x3, sensory intact, responsive, speech normal Psychiatric: judgement/insight normal, memory normal, mood/affect normal, no suicidal/homicidal ideation Skin: other - infected puncture wound left finger Lymphatic: no adenopathy Procedures Splinting Splinting : Consent: Verbal Location: left ring finger Pre-Made Type: metal Pre-Proc Neuro Vasc Exam: normal Post-Proc Neuro Vasc Exam: normal Patient Tolerated: Well Complications: None Medical Decision Making PA Attestation Diagnosis and treatment plans were reviewed and discussed with my supervising physician Dr. Monaco Diagnostic Impression: Primary Impression: Puncture wound of finger Additional Impression: Finger contusion ER Course 34-year-old male with no significant past medical history here complaining of pain and swelling of her left ring finger x1 week. Patient reports that he fell and punctured his left finger unsure how it happened 1 week ago. Reports that he normally takes [place] and is requesting something stronger [place] is not strong enough. Obvious puncture wound with minimal infection noted however no signs of bony tenderness noted. Patient has full range of motion, no motor or sensory deficits noted. Denies all other injuries, chest pain, shortness of breath, palpitation, no other associated symptoms. Is up-to-date with tetanus shot Ddx considered but are not limited to: Puncture wound of finger, finger fracture , finger contusion, cellulitis Vital signs: are WNL, pt. is afebrile H&PE are most consistent with : Finger contusion with puncture wound with minimal infection of finger ORDERS: Hand x-ray, Keflex, ibuprofen 800 ED INTERVENTIONS: Ibuprofen, wound clean and dressed, symptomatic metal splint was applied DISCHARGE: At this time pt. is stable for d/c to home. Will provide printed patient care instructions, and any necessary prescriptions. Care plan and follow up instructions have been discussed with the patient prior to discharge. Patient to tenosynovitis, take medication as directed, if worsening symptoms return to the emergency room at this time no stronger medication than [place] can be given as patient is already on that and this is not a medication for this type of injury that he is having. Patient to follow-up with pain management. Other X-Ray Diagnostic Results Other X-Ray Diagnostic Results : X-Ray ordered: finger xray # of Views/Limited Vs Complete: 3 View Indication: Pain EP Interpretation: Yes HERBERT Xray: Interpretation reviewed, by supervising MD, and agrees with findings. Interpretation: no dislocation, no soft tissue swelling, no fractures Impression: No acute disease Electronically Signed by: Matias Johnson PA-C Last Vital Signs Date Time Temp Pulse Resp B/P (MAP) Pulse Ox O2 Delivery O2 Flow Rate FiO2 08/18/19 19:19 98.1 95 19 132/91 99 Room Air Disposition: HOME, SELF-CARE Condition: Stable Scripts Ibuprofen (Ibu) 800 Mg Tablet 800 MG PO BID, #20 TAB Prov: Matias Gagnon 08/18/19 Cephalexin* (KEFLEX*) 500 Mg Capsule 500 MG ORAL EVERY 6 HOURS for 7 Days, #28 CAP Prov: Matias Gagnon 08/18/19 Patient Instructions: Contusion, Puncture Wound, [id number] Additional Instructions: Take medication as directed, follow-up with your primary care provider, if worsening symptoms return to the emergency room Matais Gagnon Aug 18, 2019 19:21
[2019-08-18] MEDS ORDERED: IBU800 MG PO (19:23)
[2019-08-18] MEDS ORDERED: CEPHALEXIN500 MG ORAL (19:23)
--- NOTE | 2019-08-18 19:35 | NUR ---
ER DISCHARGE NOTE: Patient is cleared to be discharged per ERMD, pt is aox4, on room air, with stable vital signs. pt was given dc and prescription instructions, pt was able to verbalize understanding, pt id band removed without complications. pt is able to ambulate with steady gait. pt took all belongings.
[2019-08-18 19:40] VITALS: BP 132/91
--- NOTE | 2019-08-19 14:37 | Diagnostic Imaging Report ---
Indication: pain in finger. trauma Findings: 3 views of the left fourth finger were obtained. No acute fractures, malalignment, erosions, or periosteal reaction are seen. Soft tissues are unremarkable. Impression: No acute findings.
== END 2019-08-18 19:40 | disposition home or self-care (01) ==
LOC: EMR 19:21
DX: S61.235A Puncture wound without foreign body of left ring finger without damage to nail, initial encounter (principal); S60.042A Contusion of left ring finger without damage to nail, initial encounter; W19.XXXA Unspecified fall, initial encounter; Y92.9 Unspecified place or not applicable; Z88.0 Allergy status to penicillin; Z91.041 Radiographic dye allergy status; F41.9 Anxiety disorder, unspecified
CPT/HCPCS: 29130; 73140; Z7502; 99283

== ENCOUNTER 2019-09-30 17:31 | Emergency (ER) | payer OTHER ==
[~2019-09-30] VITALS: Ht 165.1 cm; Wt 104.3 kg
[~2019-09-30 17:31] MED LIST changes: +CEPHALEXIN500 MG ORAL; +IBU800 MG PO
--- NOTE | 2019-09-30 17:49 | NUR ---
ED Nurse Note: EKG done at bedside.
[2019-09-30 17:54] VITALS: BP 143/84
--- NOTE | 2019-09-30 17:57 | Emergency Room Report ---
History of Present Illness General Chief Complaint: Chest Pain Source: Patient Present Illness HPI 34-year-old male with history of cocaine and methamphetamine abuse here complaining of 1 week of chest pain radiating to left arm. Patient reports that he has history of cocaine abuse in the past and he had stopped using cocaine which recently about 1 month ago he restarted again. Patient reports that he decided to stop using cocaine and methamphetamine about a week ago which coincides with the onset of his symptoms. Complains of anxiety is requesting Ativan. Patient denies any suicidal homicidal ideation. Denies any alcohol intake. Reports that he intermittently smokes tobacco. Denies headache and dizziness at this time. Denies abdominal pain, nausea vomiting. Denies all other drug use. Allergies: Coded Allergies: ESOMEPRAZOLE (Verified Allergy, Severe, 06/11/17) IODINATED CONTRAST MEDIA (Verified Allergy, Intermediate, Rash, 06/11/17) IODINE (Unverified Allergy, Unknown, 05/30/19) PENICILLINS (Verified Allergy, Unknown, 06/11/17) Patient History Past Medical History: see triage record Past Surgical History: none Social History: Reports: smoking, drug use - cocaine Immunizations: UTD Reviewed Nursing Documentation: PMH: Agreed; PSxH: Agreed Nursing Documentation-PMH Past Medical History: No Stated History Hx Gastrointestinal Problems: No - hiatal hernia Hx Neurological Problems: No - anxiety Review of Systems All Other Systems: negative except mentioned in HPI Physical Exam Vital Signs Date Time Temp Pulse Resp B/P (MAP) Pulse Ox O2 Delivery O2 Flow Rate FiO2 09/30/19 17:39 97.7 78 18 143/84 (103) 98 Room Air Sp02 EP Interpretation: reviewed, normal General Appearance: no apparent distress, alert, GCS 15, non-toxic Head: normocephalic, atraumatic Eyes: bilateral eye normal inspection, bilateral eye PERRL ENT: hearing grossly normal, normal pharynx, no angioedema, normal voice Neck: full range of motion, supple/symm/no masses Respiratory: chest non-tender, lungs clear, normal breath sounds, no rhonchi, no wheezing, speaking full sentences Cardiovascular #1: regular rate, rhythm, no edema, no murmur Gastrointestinal: non tender, soft, no guarding Rectal: deferred Genitourinary: no CVA tenderness Musculoskeletal: back normal, normal range of motion, gait/station normal, non- tender Neurologic: alert, motor strength/tone normal, oriented x3, sensory intact, responsive, speech normal Psychiatric: judgement/insight normal, memory normal, no suicidal/homicidal ideation, anxious Skin: no rash Lymphatic: no adenopathy Medical Decision Making PA Attestation All my diagnosis and treatment plans were reviewed ad discussed with my supervising physician Dr. Hui Diagnostic Impression: Primary Impression: Chest pain, unspecified Additional Impression: Cocaine abuse ER Course 34-year-old male with history of cocaine and methamphetamine abuse here complaining of 1 week of chest pain radiating to left arm. Patient reports that he has history of cocaine abuse in the past and he had stopped using cocaine which recently about 1 month ago he restarted again. Patient reports that he decided to stop using cocaine and methamphetamine about a week ago which coincides with the onset of his symptoms. Complains of anxiety is requesting Ativan. Patient denies any suicidal homicidal ideation. Denies any alcohol intake. Reports that he intermittently smokes tobacco. Denies headache and dizziness at this time. Denies abdominal pain, nausea vomiting. Denies all other drug use. Ddx considered but are not limited to: [place], Angina, COPD, GERD, cocaine induced chest pain Vital signs: are WNL, pt. is afebrile H&PE are most consistent with cocaine induced chest pain ORDERS: EKG, Chest XR, CBC, CMP, troponin, tox screen, BNP ED INTERVENTIONS: Propranolol DISCHARGE: At this time pt. is stable for d/c to home. Will provide printed patient care instructions, and any necessary prescriptions. Care plan and follow up instructions have been discussed with the patient prior to discharge. Patient to follow-up primary care provider also gave a list of facilities that can help him with drug abuse as well as mental health facilities. I also advised patient to follow-up with a parking lot signaler for echocardiogram of the heart since he has been a cocaine abuser for a long time rule out endocarditis. At this time due to normal vital signs as well as normal white count no further imaging or blood work needed at the emergency department. EKG Diagnostic Results Rate: normal Rhythm: NSR ST Segments: no acute changes Other Impression No acute ST changes Chest X-Ray Diagnostic Results Chest X-Ray Diagnostic Results : Chest X-Ray Ordered: Yes # of Views/Limited/Complete: 1 View Indication: Chest Pain EP Interpretation: Yes PA Xray: Interpretation reviewed, by supervising MD, and agrees with findings. Interpretation: no consolidation, no effusion, no pneumothorax Impression: No acute disease Electronically Signed by: Matias Johnson PA-C Last Vital Signs Date Time Temp Pulse Resp B/P (MAP) Pulse Ox O2 Delivery O2 Flow Rate FiO2 09/30/19 17:54 97.7 82 18 143/84 98 Room Air Status: improved Disposition: HOME, SELF-CARE Condition: Stable Patient Instructions: Nonspecific Chest Pain, Stimulant Use Disorder-Cocaine Additional Instructions: Take medication as directed, follow-up with your primary care provider, you need to be sent to parking lot signaler for echocardiogram of your heart due to cocaine abuse. If worsening symptoms return to emergency room. At this time you need also to be followed up by a psychiatrist for treatment of anxiety. Matias Gagnon Sep 30, 2019 17:57
--- NOTE | 2019-09-30 18:08 | NUR ---
ED Nurse Note: X-ray on bedside, done.
[2019-09-30] MEDS ORDERED: Propranolol 10mg tab ORAL ONE (18:30)
[2019-09-30 18:56] LABS: BASOPHILS % (AUTO) 0.8 % (0.0-2.0); EOSINOPHILS % (AUTO) 6.4 % (0.0-3.0); HEMATOCRIT 41.3 % (42.0-52.0); HEMOGLOBIN 12.7 G/DL (14.2-18.0); LYMPHOCYTES % (AUTO) 34.1 % (20.0-45.0); MEAN CORPUSCULAR VOLUME 88 FL (80-99); MONOCYTES % (AUTO) 4.7 % (1.0-10.0); NEUTROPHILS % (AUTO) 54.1 % (45.0-75.0); PLATELET COUNT 206 K/UL (150-450); RED BLOOD COUNT 4.69 M/UL (4.70-6.10); RED CELL DISTRIBUTION WIDTH 13.8 % (11.6-14.8); WHITE BLOOD COUNT 8.8 K/UL (4.8-10.8)
--- NOTE | 2019-09-30 19:10 | NUR ---
ED Nurse Note: Report recieved from LE[facility] Gage. No acute distress noted. Pt c/o chest pain, no past med hx. Will continue to monitor.
[2019-09-30] MEDS ORDERED: Ketorolac 30mg Inj IM ONE (19:45)
[2019-09-30 19:58] LABS: ALANINE AMINOTRANSFERASE 54 U/L (12-78); ALBUMIN 3.5 G/DL (3.4-5.0); ALKALINE PHOSPHATASE 83 U/L (46-116); ANION GAP 9 mmol/L (5-15); ASPARTATE AMINO TRANSFERASE 58 U/L (15-37); BILIRUBIN,TOTAL 0.3 MG/DL (0.2-1.0); BLOOD UREA NITROGEN 13 mg/dL (7-18); CARBON DIOXIDE 27 MMOL/L (21-32); CHLORIDE 105 MMOL/L (98-107); SODIUM 139 MMOL/L (136-145)
[2019-09-30 20:00] LABS: POTASSIUM 5.9 MMOL/L (3.5-5.1)
[2019-09-30 20:25] VITALS: BP 139/75
--- NOTE | 2019-10-01 13:54 | Diagnostic Imaging Report ---
Indication: Dyspnea Comparison: 04/05/2019 A single view chest radiograph was obtained. Findings: Cardiomediastinal appearance is within normal limits for age. The lungs are clear. Pulmonary vascularity is appropriate. The diaphragmatic contour is smooth and costophrenic angles are sharp. No pleural effusions are identified. The bones are unremarkable. Impression: No acute findings
== END 2019-09-30 20:25 | disposition home or self-care (01) ==
LOC: EMR 18:17
DX: R07.9 Chest pain, unspecified (principal); F14.10 Cocaine abuse, uncomplicated; F15.10 Other stimulant abuse, uncomplicated; F41.9 Anxiety disorder, unspecified; F17.200 Nicotine dependence, unspecified, uncomplicated; Z88.0 Allergy status to penicillin; Z91.041 Radiographic dye allergy status; Z88.8 Allergy status to other drugs, medicaments and biological substances
CPT/HCPCS: 36415; 71045; 80053; 80307; 83880; 84484; 85025; 96372; J1885; Z7502; 99283

== ENCOUNTER 2020-01-04 14:12 | Emergency (ER) | payer OTHER ==
[~2020-01-04] VITALS: Ht 175.3 cm; Wt 104.3 kg
[2020-01-04 14:29] VITALS: BP 128/83
--- NOTE | 2020-01-04 14:39 | NUR ---
ED Nurse Note: Pt reports right sided chest pain that started this morning at 7am. No fever, no cough. Hx of anxiety. AAO x4, ambulatory with nonlabored breathing.
--- NOTE | 2020-01-04 15:06 | NUR ---
ELOPEMENT: pt started to walk away from and and states hes going to leave.
--- NOTE | 2020-01-04 17:47 | Emergency Room Report ---
History of Present Illness General Chief Complaint: Chest Pain Source: Patient Present Illness HPI 34-year-old male with history of cocaine abuse who has been here multiple times complaining of chest pain and anxiety requesting IV Ativan after use of cocaine here complaining of 2 days of chest pain feeling like his heart is leaving his body. Patient appears to be stable with a vital signs. Denies any fever and chills or cough. Keeps interrupting me upon my examination and says that he needs IV Ativan. When I told him that he does not need any IV Ativan at this time and EKG looks normal with pending chest x-ray to be done patient decided to elope. Allergies: Coded Allergies: ESOMEPRAZOLE (Verified Allergy, Severe, 06/11/17) IODINATED CONTRAST MEDIA (Verified Allergy, Intermediate, Rash, 06/11/17) IODINE (Unverified Allergy, Unknown, 05/30/19) PENICILLINS (Verified Allergy, Unknown, 06/11/17) COVID-19 Screening Contact w/high risk pt: No Recent Travel to affected area: No Experienced COVID-19 symptoms?: Yes COVID-19 symptoms experienced: Shortness of Breath Patient History Past Medical History: see triage record Past Surgical History: none Pertinent Family History: none Social History: Reports: drug use - cocaine Immunizations: UTD Reviewed Nursing Documentation: PMH: Agreed; PSxH: Agreed Nursing Documentation-PMH Past Medical History: No Stated History Hx Gastrointestinal Problems: No - hiatal hernia Hx Neurological Problems: No - anxiety Review of Systems All Other Systems: negative except mentioned in HPI Physical Exam Vital Signs Date Time Temp Pulse Resp B/P (MAP) Pulse Ox O2 Delivery O2 Flow Rate FiO2 01/04/20 14:29 98.1 89 20 128/83 97 Room Air Sp02 EP Interpretation: reviewed, normal General Appearance: no apparent distress, alert, GCS 15, non-toxic Head: normocephalic, atraumatic Eyes: bilateral eye normal inspection, bilateral eye PERRL ENT: hearing grossly normal, normal pharynx, no angioedema, normal voice Neck: full range of motion, supple/symm/no masses Respiratory: chest non-tender, lungs clear, normal breath sounds, speaking full sentences Cardiovascular #1: regular rate, rhythm, no edema Gastrointestinal: normal bowel sounds, non tender, soft, non-distended, no guarding, no rebound Genitourinary: no CVA tenderness Musculoskeletal: back normal Psychiatric: no suicidal/homicidal ideation Skin: no rash Lymphatic: no adenopathy Medical Decision Making PA Attestation All diagnoses and treatment plans were reviewed and discussed with my supervising physician Dr. Cameron Diagnostic Impression: Primary Impression: Chest pain Additional Impression: Eloped from emergency department ER Course 34-year-old male with history of cocaine abuse who has been here multiple times complaining of chest pain and anxiety requesting IV Ativan after use of cocaine here complaining of 2 days of chest pain feeling like his heart is leaving his body. Patient appears to be stable with a vital signs. Denies any fever and chills or cough. Keeps interrupting me upon my examination and says that he needs IV Ativan. When I told him that he does not need any IV Ativan at this time and EKG looks normal with pending chest x-ray to be done patient decided to elope. Ddx considered but are not limited to: [place], Angina, COPD, GERD, anxiety Vital signs: are WNL, pt. is afebrile H&PE are most consistent with a relapse, cocaine abuse chest pain, anxiety ORDERS: EKG, Chest XR, since patient stable with stable vital signs no further evaluation is needed. ED INTERVENTIONS: None required at this time. Patient eloped before x-ray was performed. EKG Diagnostic Results Rate: normal Rhythm: NSR ST Segments: no acute changes Other Impression No acute ST changes Last Vital Signs Date Time Temp Pulse Resp B/P (MAP) Pulse Ox O2 Delivery O2 Flow Rate FiO2 01/04/20 14:39 89 20 Room Air 01/04/20 14:29 98.1 128/83 (98) 97 Disposition: ELOPED Condition: Stable Referrals: [facility],REFERR[facility] (PCP) Matias Gagnon January 04, 2020 17:47
== END 2020-01-04 16:07 | disposition left against medical advice (07) ==
LOC: EMR 14:52
DX: R07.9 Chest pain, unspecified (principal); F41.9 Anxiety disorder, unspecified; Z88.8 Allergy status to other drugs, medicaments and biological substances; Z88.0 Allergy status to penicillin; Z91.041 Radiographic dye allergy status; R06.02 Shortness of breath; F14.90 Cocaine use, unspecified, uncomplicated
CPT/HCPCS: 99282

== ENCOUNTER 2020-11-20 10:47 | Emergency (ER) | payer OTHER ==
[~2020-11-20] VITALS: Ht 182.9 cm; Wt 127.0 kg
[2020-11-20] MEDS ORDERED: Acetaminophen 500mg (ES) tab ORAL ONE (11:00)
[2020-11-20] MEDS ORDERED: Tetanus/Diptheria/Pertussis IM ONE (11:00)
[2020-11-20 11:02] VITALS: BP 125/80
[2020-11-20] MEDS ORDERED: Bacitracin Oint UD TOPIC ONE (11:04)
[2020-11-20] MEDS ORDERED: TYLENOL EXTRA500 MG ORAL (11:07)
--- NOTE | 2020-11-20 11:09 | Emergency Room Report ---
History of Present Illness General Chief Complaint: To Be Triaged Source: Patient Present Illness HPI 35-year-old male no prior medical history presents with scalp laceration after hitting his head in the shower last night. Also describes headache localized to the area around the scalp laceration. Tdap status is unknown. Denies loss of consciousness, syncope, chest pain, neck pain, back pain, vision changes, hearing changes, slurred speech, difficulty walking, paresthesia, fever, photophobia or any other symptoms. This is similar to previous headaches he has had in the past. No sudden thunderclap onset. Not worst of life The patient's symptoms were gradual. Onset, severity was moderate, duration since 1 days. Quality: aching Past medical history: Denies Past surgical history: Denies Smoking: Denies Alcohol use: Denies Drug use: Previous Cocaine use Review of systems: CONST: No fevers or chills, No night sweats PULMONARY: No productive cough, No shortness of breath CARDIAC: No chest pain, No palpitations GI: No vomiting, No diarrhea , No melena_or_BRBPR : No dysuria, No hematuria, No discharge NEURO: No new_focal_weakness_or_numbness, No confusion, No vision changes 14 point Review of Systems is otherwise negative except per HPI Physical Exam: GENERAL: Awake_alert_ nontoxic, no acute distress Spo2 98% on RA -normal EYES: Extraocular muscles are intact. Conjunctivae clear. Lids without swelling. No nystagmus. ENT: External nose and ear normal_in_appearance. Oropharynx clear. Scabbed occipital scalp laceration 1 cm. No active bleeding. No visualized arterial hemorrhage. No visualized bone. Moist_oral_mucosa NECK: No JVD. No meningismus. No thyromegaly. Supple. Trachea midline. No midline cervical, thoracic, lumbar spinal step-off or deformity. RESP: Normal respiratory effort. Symmetric rise. No stridor. Clear_to_auscultation_No_rales_No_wheezes CARDIAC: Regular rate and regular rhytm. No_significant pedal edema. ABDOMEN: Soft. Nondistended. Nontender_No_rebound_or_guarding. No pelvic instability MSK: Normal muscle tone, without rigidity. Extremities without asymmetric deformity or swelling. SKIN: Warm and dry. No visible cyanosis or pallor. No petechiae NEUROLOGIC: Alert, oriented x3. Motor_and_sensation_grossly_intact. No truncal ataxia. Gait_normal Psych: Normal mood and affect, normal judgment and insight - COORDINATION OF CARE Case was discussed with: Patient Any imaging ordered was interpreted as part of the medical decision making: Medical Decision Making/Plan: Differential diagnosis includes closed head injury, scalp contusion, neck muscle spasm / strain, vs less likely skull fracture, intracranial bleeding, vertebral fracture, spinal cord compression / injury, among others. Patient is neurologically intact. No abnormal cerebellar signs. No focal deficits. Wound is healing. No signs of acute infection. CT scans of the head were immediately obtained and showed no evidence of any emergent findings. Tdap was updated. Scalp lac is scabbed and not amenable to stitches. Time o finjury > 16 hrs. Pain was controlled with tylenol. The patient is non-toxic, well appearing and significantly improved with observation and serial exams in the emergency department. Doubt occult intracranial bleeding or basilar fx. The patient is neurologically intact and able to ambulate, no evidence of spinal cord injury. Patient is stable for discharge home and follow up with their regular doctor in 1-2 days. Pertinent results reviewed with the patient. I educated the patient on the curr ent treatment plan including the risks, benefits, and alternatives. I also discussed the extent and limitations of the current evaluation. The patient expressed understanding and agreement with plan. I recommended PMD follow-up within 1-2 days. Also advised that the patient return to the Emergency Department as soon as possible if they experience any new, persistent, or worsening symptoms. Allergies: Coded Allergies: ESOMEPRAZOLE (Verified Allergy, Severe, 06/11/17) IODINATED CONTRAST MEDIA (Verified Allergy, Intermediate, Rash, 06/11/17) IODINE (Unverified Allergy, Unknown, 05/30/19) PENICILLINS (Verified Allergy, Unknown, 06/11/17) COVID-19 Screening Contact w/high risk pt: No Recent Travel to affected area: No Experienced COVID-19 symptoms?: Yes COVID-19 symptoms experienced: Shortness of Breath Nursing Documentation-PMH Hx Gastrointestinal Problems: No - hiatal hernia Hx Neurological Problems: No - anxiety Physical Exam Sp02 EP Interpretation: reviewed, normal Medical Decision Making Diagnostic Impression: Primary Impression: Occipital scalp laceration Additional Impressions: Scalp contusion Headache CT/MRI/US Diagnostic Results CT/MRI/US Diagnostic Results : Impression CT Head Without Intravenous Contrast FINDINGS: Brain: No acute infarct or hemorrhage. No extra-axial fluid collection. No mass effect or midline shift. Ventricles and sulci: Normal. No ventriculomegaly or intraventricular hemorrhage. Bones: Normal. No bony lesion or acute fracture Subcutaneous tissues: Normal. Sinuses: Normal. No air-fluid levels or mucosal thickening. Mastoid air cells: Normal. Orbits: Grossly unremarkable. IMPRESSION: No acute intracranial abnormality. Dictated By: Bernard Suero MD Disposition: HOME, SELF-CARE Admit Decision Time: 12:00 Condition: Stable Scripts Acetaminophen* (TYLENOL EXTRA STRENGTH*) 500 Mg Tablet 500 MG ORAL Q8H PRN for Prn Headache/Temp > 101, #30 TAB 0 Refills Prov: Kenna Darling D.O. 11/20/20 Patient Instructions: Facial or Scalp Contusion, [id number], Nonsutured Laceration Care Additional Instructions: Instructions for patient/washer off: Follow up with your physician in 1-2 days for wound check. Do not pick your scab. Follow-up with your doctor sooner if your condition requires a more timely clinical reevaluation. Return to the emergency department immediately if you feel that your condition is worsening or if you have any new or concerning symptoms. Review your discharge instructions and take any prescriptions given as instructed. [facility] PROVIDES FREE OR LOW-COST HEALTH SERVICES TO PEOPLE WHO CAN SHOW PROOF THAT THEY LIVE IN [facility]. TO FIND MORE CLINICS PARTNERED WITH THE [facility] TO PROVIDE SERVICE, PLEASE CALL . Kenna Darling D.O. Nov 20, 2020 11:09
--- NOTE | 2020-11-20 11:13 | NUR ---
came to er compalints head injury this morning he hit his head in the shower no loc no bleeding. examined by md cheung given ct requested
--- NOTE | 2020-11-20 11:46 | Diagnostic Imaging Report ---
EXAM: CT Head Without Intravenous Contrast CLINICAL HISTORY: PAIN TECHNIQUE: Axial computed tomography images of the head/brain without intravenous contrast. CTDI is 53.4 mGy and DLP is 1125.7 mGy-cm. One or more of the following dose reduction techniques were used: automated exposure control, adjustment of the mA and/or kV according to patient size, use of iterative reconstruction technique. COMPARISON: CT head on 02/04/2013 FINDINGS: Brain: No acute infarct or hemorrhage. No extra-axial fluid collection. No mass effect or midline shift. Ventricles and sulci: Normal. No ventriculomegaly or intraventricular hemorrhage. Bones: Normal. No bony lesion or acute fracture. Subcutaneous tissues: Normal. Sinuses: Normal. No air-fluid levels or mucosal thickening. Mastoid air cells: Normal. Orbits: Grossly unremarkable. IMPRESSION: No acute intracranial abnormality.
[2020-11-20 11:50] VITALS: BP 125/80
== END 2020-11-20 11:51 | disposition home or self-care (01) ==
LOC: EMR 11:07
DX: S01.01XA Laceration without foreign body of scalp, initial encounter (principal); R51.9 Headache, unspecified; W22.8XXA Striking against or struck by other objects, initial encounter; Y93.E1 Activity, personal bathing and showering; Y92.012 Bathroom of single-family (private) house as the place of occurrence of the external cause; Z88.0 Allergy status to penicillin; Z91.041 Radiographic dye allergy status; Z88.8 Allergy status to other drugs, medicaments and biological substances
CPT/HCPCS: 70450; 90471; 90715; Z7502; 99284